=== PATIENT | male | born 1985 | race Caucasian/White ===

== ENCOUNTER 2019-12-11 22:05 | Emergency (ER) | payer OTHER, SELFPAY ==
--- NOTE | 2019-12-11 22:13 | XR_ITS ---
WS: [id number] Right hand, 3 views, 12/11/2019 Clinical Data: injury Comparison: None. Findings: No fractures or dislocations are seen. There is soft tissue swelling in the subcutaneous tissue overlying the right fifth PIP joint.No radiopaque foreign bodies are seen. XR/XR hand RT min 3V* [id number] Impression: Soft tissue swelling overlying the right fifth PIP joint.
[2019-12-11 22:41] VITALS: BP 130/74; PULSE 86; RESP 14; TEMP 36.4; O2SAT 96; BMI 27.3
--- NOTE | 2019-12-12 01:36 | W.ED.WOUNDLC ---
HPI - Wound/Laceration General: Chief Complaint: Wound/Laceration Stated Complaint: right pinky injury Time Seen by Provider: 12/12/19 01:30 Source: patient Mode of arrival: ambulatory Limitations: no limitations History of Present Illness: HPI narrative: Patient is a 34-year-old male who presents to ED today with complaints of a right fifth digit laceration that he sustained after catching it in a bushhog. Patient's last tetanus is unknown. Onset (ago): hour(s) Extremity Location: Left: hand (5th digit) Place: home Patient tetanus UTD: No Context: accidental Associated symptoms: Reports no associated symptoms Review of Systems Musc: Reports: extremity pain (R 5th finger) Skin/Breast: Reports: other (laceration to R 5th finger) Neuro: Denies: numbness in extremities or sensory changes Physical Exam Const: COMMON NORMALS: no acute distress, patient oriented x3 and alert OTHER: appears Extremity: OTHER: 3.5cm laceration to dorsal R 5th finger overlying PIP joint; extensor tendon visualized but pt appears to have full ROM; sensory intact; cap refill intact Neuro: COMMON NORMALS: patient oriented x3, moves all extremities, no focal motor deficits and no sensory deficits noted SENSORIUM/ORIENTATION: Yes alert Skin: OTHER: see extremity assessment Procedures Laceration Laceration 1: Site: hand (R 5th finger) Side (If applicable): right Size (cm): 3.5 Description: linear Depth: simple, single layer Local Anesthetic: lidocaine 2% (digital block) Amount of anesthesia used (mL): 2.0 Pre-repair: wound explored and irrigated extensively Skin layer closed with: nylon Size (cm): 4-0 Number of sutures: 8 Technique: simple, interrupted Course Vital Signs: Vital signs: Vital Signs Temperature 97.6 F 12/11/19 22:41 Pulse Rate 78 12/12/19 01:54 Respiratory Rate 14 12/11/19 22:41 Blood Pressure 130/74 12/11/19 22:41 Pulse Oximetry 96 12/11/19 22:41 MDM - Wound/Laceration MDM Narrative: Medical decision making narrative: Patient does have a fairly deep laceration and portion of extensor tendon is visualized. Although there is not obvious deficits I spoke to patient regarding possible follow-up with orthopedics just for further evaluation to make sure there is no tendon involvement. Patient [facility]. Patient will be placed in a splint. Wound care discussed. Imaging Data^: R hand XR: My impression: NAD; soft tissue injury over 5th digit-no bony involvement; small fb noted elsewhere in hand that does not correspond with today's injury Discharge Plan Discharge Patient Disposition: Home, Self-Care Clinical Impression: Laceration of right little finger Qualifiers: Encounter type: initial encounter Damage to nail status: without damage Foreign body presence: without foreign body Qualified Code(s): S61.216A - Laceration without foreign body of right little finger without damage to nail, initial encounter Condition: Stable Prescriptions: New Keflex 500 mg capsule 500 mg PO Q6H 7 Days Qty: 28 RF: 0 Discharge Orders: Discharge Order (Routine); Ordered 12/12/19 Ordered By: Karyn Engel Referrals: Pattie Sunshine FNP [Family Provider] - Patient Instructions: Finger Laceration (ED) Activity Restrictions/Additional Instructions: As discussed please keep finger clean with warm soap and water several times daily. Sutures need to come out in 7 to 10 days. Fill your antibiotics tomorrow. Monitor for signs of infection such as redness, swelling, drainage. As discussed [facility] see if [facility] need to refer you to orthopedic/hand surgery. Discharge Date/Time: 12/12/19 02:51 Coding Level of Care Code ED Electric Motor Tester for Kim Jackson
[2019-12-12 01:54] VITALS: PULSE 78
[2019-12-12] MEDS: tetanus-diphtheria tox (adult) 0.5 mL SDV IM (02:00)
[2019-12-12 02:48] VITALS: BP 111/63; PULSE 82; RESP 18; O2SAT 96
== END 2019-12-12 02:51 | disposition home or self-care (01) ==
PROVIDERS: Emergency Provider Physician Assistant; Family Provider Nurse Practitioner
DX: S61.216A Laceration without foreign body of right little finger without damage to nail, initial encounter (principal); W31.9XXA Contact with unspecified machinery, initial encounter; Z23 Encounter for immunization
CPT/HCPCS: 12002; 12345; 73130; 90471; 90714; 99282; 99283

== ENCOUNTER 2020-02-17 19:05 | Emergency (ER) | payer OTHER, SELFPAY ==
[2020-02-17 19:17] VITALS: BP 162/94; PULSE 78; RESP 18; TEMP 36.5; O2SAT 97; BMI 27.3
== END 2020-02-17 20:27 ==
PROVIDERS: Emergency Provider Emergency Medicine; PCP Nurse Practitioner
DX: Z53.21 Procedure and treatment not carried out due to patient leaving prior to being seen by health care provider (principal)
CPT/HCPCS: 99281

== ENCOUNTER 2020-03-01 07:20 | Outpatient (CLI) | payer OTHER, SELFPAY ==
--- NOTE | 2020-03-01 07:24 | MR_ITS ---
WS: [id number] MRI LUMBAR SPINE NONCONTRAST HISTORY: Low back pain. Pain for one month. COMPARISON: 03/18/2019 TECHNIQUE: Sagittal and axial multisequence imaging is submitted. Mild straightening of the normal lumbar lordosis. Chronic endplate changes at L5 and S1. Otherwise no marrow edema or fracture. Mild disc space narrowing and desiccation at L5-S1. Schmorl's node at L1. Conus terminates normally at L1. L1-L2: Normal. L2-L3: Normal. L3-L4: Small amount of fluid in the facet joints and mild ligamentum flavum hypertrophy. No significa nt stenosis. L4-L5: Mild annular disc bulging with a very tiny central disc protrusion and annular fissure. Mild l igamentum flavum hypertrophy and facet arthritis. No significant stenosis. L5-S1: Mild annular disc bulging and osteophytic ridging. Central disc osteophyte complex without sig nificant stenosis. There is very minimal encroachment upon the S1 nerve roots bilaterally with no dis placement. Disc osteophyte complexes extend into the foramen with mild foraminal narrowing and mild e ncroachment upon the L5 nerve roots. Similar to the prior study. Previously described large LEFT para central disc protrusion is no longer present. There is a small amount of edema in the soft tissues along the posterior lower back. Ovoid 2.3 x 1.9 cm mixed signal intensity subcutaneous mass over the sacrum may be related to prior injury with resol ving hematoma or pilonidal cyst extension. MR/MR lumbar spine wo con* [id number] IMPRESSION: 1. Interval resolution of the large LEFT paracentral and lateral recess disc p rotrusion at L5-S1. 2. Mild residual disc osteophyte complexes at L5-S1 with facet arthritis. Mild foraminal narrowing. 3. Mild degenerative disc disease at L5-S1.
== END 2020-03-01 07:21 | disposition home or self-care (01) ==
LOC: RADSHAW 07:23
PROVIDERS: PCP Nurse Practitioner; Visit Provider Nurse Practitioner
DX: M51.27 Other intervertebral disc displacement, lumbosacral region (principal); M25.78 Osteophyte, vertebrae; M47.817 Spondylosis without myelopathy or radiculopathy, lumbosacral region; M51.37 Other intervertebral disc degeneration, lumbosacral region
CPT/HCPCS: 72148

== ENCOUNTER 2020-09-16 19:09 | Emergency (ER) | payer OTHER, SELFPAY ==
--- NOTE | 2020-09-16 19:10 | XRR_ITS ---
PROCEDURE INFORMATION: Exam: XR Chest Exam date and time: 09/16/2020 8:09 PM Age: 34 years old Clinical indication: Shortness of breath; Chest pain; Type not specified; Additional info: Cp, SOB, BP issues x 4 days TECHNIQUE: Imaging protocol: XR of the chest. Views: 1 view. COMPARISON: No relevant prior studies available. FINDINGS: Lungs: Unremarkable. No consolidation. Pleural spaces: Unremarkable. No pleural effusion. No pneumothorax. Heart/Mediastinum: Unremarkable. No cardiomegaly. Bones/joints: Unremarkable. XR/XR chest 1V portable [id number] IMPRESSION: No acute findings.
[2020-09-16 19:19] VITALS: BP 144/86; PULSE 85; RESP 18; TEMP 36.9; O2SAT 99; BMI 27.3
[2020-09-16 20:16] LABS: Basophils % 0.2 %; Eosinophils # 0.1 10^3/uL (0.0-0.8); Eosinophils % 0.7 %; Hematocrit 41.1 % (42.0-52.0); Hemoglobin 14.4 g/dL (11.7-16.6); Lymphocytes # 2.5 10^3/uL (0.8-4.8); Lymphocytes % 22.1 %; Mean Corpuscular Hemoglobin 32.4 pg (28.0-34.0); Mean Corpuscular Volume 92.4 fL (80-94); Mean Platelet Volume 10.8 fL (7.4-10.4); Monocytes # 0.8 10^3/uL (0.2-0.9); Monocytes % 7.5 %; Neutrophils # 7.72 10^3/uL (1.8-7.7); Neutrophils % 69.2 %; Nucleated Red Blood Cells % 0 %; Platelet Count 164 10^3/cmm (130-400); Red Blood Count 4.45 10^6/uL (4.1-5.3); Red Cell Distribution Width 11.8 % (12.1-15.1); White Blood Count 11.1 10^3/uL (4.0-10.0)
--- NOTE | 2020-09-16 20:17 | W.ED.CHESTPA ---
HPI - Chest Pain General: Chief Complaint: Chest Pain Stated Complaint: CP/SOB/BP ISSUES Time Seen by Provider: 09/16/20 20:04 Source: patient Mode of arrival: ambulatory Limitations: no limitations History of Present Illness: HPI narrative: 34-year-old male states over the last 3 days he has had some slight chest pain along with some dyspnea. He states pain is been sharp in nature and constant. States pain is currently a 3 out of 10. He states he is also had a migraine today. He has a long history of migraines. He states his pain is a 7 out of 10 currently. He states he has photophobia and phonophobia. This is like his previous migraines. He denies any vomiting or diarrhea. Denies any abdominal pain. Denies any neck pain. Associated symptoms: Deny abdominal pain, dyspnea, fever(s), nausea or vomiting Review of Systems Const: Denies: fever(s), chills, body aches or change in appetite Eyes: Denies: blurry vision or eye discomfort ENMT: Denies: throat pain or dental pain Card: Reports: chest pain Resp: Denies: dyspnea GI: Denies: abdominal pain, nausea, vomiting or diarrhea : Denies: dysuria Musc: Denies: neck pain or back pain Skin/Breast: Denies: rash Neuro: Reports: headache(s) Psych: Denies: depression Tahir/Lymph: Denies: easy bruising All/Imm: Denies: urticaria Physical Exam Const: COMMON NORMALS: no acute distress, patient oriented x3 and healthy appearing HENMT: COMMON NORMALS: normocephalic and atraumatic HEAD & SCALP: normocephalic and atraumatic Eye: COMMON NORMALS: Equal, round and reactive pupils present and EOMs intact bilaterally PUPIL: Yes Equal, round and reactive pupils present Neck/C-Spine: COMMON NORMALS: full ROM and supple Chest: COMMONS NORMALS: normal inspection of the chest and normal palpation of entire chest wall Resp: COMMON NORMALS: normal respiratory effort, No retractions, No use of accessory muscles and clear to auscultation bilaterally AUSCULTATION: clear to auscultation bilaterally Cardio: COMMON NORMALS: regular rate, regular rhythm and No murmurs present (Cardio) RATE: regular rate RHYTHM: regular rhythm GI: COMMON NORMALS: Normal to inspection, nondistended, normoactive bowel sounds present, Soft to palpation, non-tender and no masses PALPATION: Yes Soft to palpation Extremity: COMMON NORMALS: normal to inspection and full ROM Neuro: COMMON NORMALS: patient oriented x3, moves all extremities and no focal motor deficits Psych: COMMON NORMALS: mental status grossly normal, Normal thought process present and cooperative THOUGHT PROCESS: Normal thought process present Skin: COMMON NORMALS: no rashes or lesions noted and no wounds GENERAL SKIN EXAM: no rashes or lesions noted Course Vital Signs: Vital signs: Vital Signs Temperature 98.4 F 09/16/20 19:19 Pulse Rate 84 09/16/20 21:25 Respiratory Rate 16 09/16/20 21:25 Blood Pressure 126/80 09/16/20 21:25 Pulse Oximetry 98 09/16/20 21:25 MDM - Chest Pain MDM Narrative: Medical decision making narrative: Patient presents here with headache is likely a migraine headache. His headache is resolved here and has no signs of subarachnoid hemorrhage or meningitis. He also complained of some chest pain is mild in nature and his troponin EKG and x-ray are all normal. He has no signs of pulmonary embolism or acute coronary syndrome. He is to follow-up his PCP and return if worsening. Lab Data: Labs: Lab Results 09/16/20 09/16/20 09/16/20 Range/Units 20:09 20:09 20:09 WBC 11.1 H (4.0-10.0) 10^3/ uL RBC 4.45 (4.1-5.3) 10^6/u L Hgb 14.4 (11.7-16.6) g/dL Hct 41.1 L (42.0-52.0) % MCV 92.4 (80-94) fL MCH 32.4 (28.0-34.0) pg MCHC 35.0 (30.0-36.0) g/dL RDW 11.8 L (12.1-15.1) % Plt Count 164 (130-400) 10^3/c mm MPV 10.8 H (7.4-10.4) fL Neut % (Auto) 69.2 % Lymph % (Auto) 22.1 % Mingo % (Auto) 7.5 % Eos % (Auto) 0.7 % Baso % (Auto) 0.2 % Neut # (Auto) 7.72 H (1.8-7.7) 10^3/u L Lymph # (Auto) 2.5 (0.8-4.8) 10^3/u L Mingo # (Auto) 0.8 (0.2-0.9) 10^3/u L Eos # (Auto) 0.1 (0.0-0.8) 10^3/u L Baso # (Auto) 0.0 (0.0-0.1) 10^3/u L Nucleated RBC % (a uto) 0 % Nucleated RBCs # 0.0 /100WBC Sodium 137 (136-145) mmol/L Potassium 3.4 L (3.5-5.1) mmol/L Chloride 100 (98-107) mmol/L Carbon Dioxide 26 (22-29) mmol/L Anion Gap 14.4 (5-19) BUN 18 (6-20) mg/dL Creatinine 0.8 (0.7-1.2) mg/dL GFR Calculation 110.0 (90-130) mL/min Glucose 93 (65-115) mg/dL Calculated Osmolal ity 286 (285-295) mOsm/k g Calcium 8.8 (8.5-10.5) mg/dL Total Bilirubin 0.5 (0.15-1.2) mg/dL AST 26 (0-40) U/L ALT 39 (0-41) U/L Alkaline Phosphata se 73 (40-130) IU/L Troponin T Baselin e 6 (0-15) ng/L Total Protein 6.9 (6.6-8.7) g/dL Albumin 5.0 (3.5-5.2) g/dL Globulin 1.9 (1.3-4.6) g/dL Imaging Data^: CXR: Attestation: I personally reviewed and interpreted this imaging study as follows: My impression: no acute abnormality EKG Data^: EKG 1: Attestation: I personally reviewed and interpreted this EKG as follows: EKG interpretation date: 09/16/20 EKG interpretation time: 17:55 Interpretation: nsr hr [address] or t wave abnormalities Discharge Plan Discharge Patient Disposition: Home Clinical Impression: Chest pain Qualifiers: Chest pain type: unspecified Qualified Code(s): R07.9 - Chest pain, unspecified Headache Qualifiers: Headache type: unspecified Headache chronicity pattern: acute headache Intractability: not intractable Qualified Code(s): R51.9 - Headache, unspecified Condition: Stable Discharge Orders: Discharge ED (Routine); Ordered 09/16/20 Ordered By: Melanie Wood Referrals: Pattie Sunshine HYDROELECTRIC STATION OPERATOR CHIEF [Primary Care Provider] - 1-3 days Discharge Diet: Advance as tolerated Discharge Activity: Resume usual activity Patient Instructions: Chest Pain (ED), Migraine Headache (ED) Coding Level of Care Code ED Sales Research Analyst for Chg Fwd Exam Comprehensive
[2020-09-16] MEDS: diphenhydrAMINE 50 mg/mL SDV 1mL IVP (20:23)
[2020-09-16] MEDS: metoclopramide 5 mg/mL SDV 2 mL 10 MG IVP (20:25)
[2020-09-16] MEDS: dexamethasone 10 mg/mL INJ IVP (20:28)
[2020-09-16 20:35] VITALS: BP 127/84; RESP 18; O2SAT 100
[2020-09-16 20:36] LABS: Alanine Aminotransferase 39 U/L (0-41); Alkaline Phosphatase 73 IU/L (40-130); Anion Gap 14.4 (5-19); Aspartate Amino Transferase 26 U/L (0-40); Blood Urea Nitrogen 18 mg/dL (6-20); Calcium 8.8 mg/dL (8.5-10.5); Carbon Dioxide 26 mmol/L (22-29); Chloride 100 mmol/L (98-107); Globulin 1.9 g/dL (1.3-4.6); Glucose 93 mg/dL (65-115); Osmolality Calculated 286 mOsm/kg (285-295); Potassium 3.4 mmol/L (3.5-5.1); Sodium 137 mmol/L (136-145); Total Bilirubin 0.5 mg/dL (0.15-1.2); Total Protein 6.9 g/dL (6.6-8.7)
[2020-09-16 20:38] LABS: Troponin(5th) Baseline 6 ng/L (0-15)
[2020-09-16 21:18] VITALS: BP 126/80; O2SAT 98
[2020-09-16 21:25] VITALS: BP 126/80; PULSE 84; RESP 16; O2SAT 98
== END 2020-09-16 21:26 | disposition home or self-care (01) ==
PROVIDERS: Emergency Provider Emergency Medicine; PCP Nurse Practitioner
DX: R07.9 Chest pain, unspecified (principal); R51.9 Headache, unspecified
CPT/HCPCS: 71045; 80053; 84484; 85025; 96374; 96375; 99284; J1100; J1200; J2765

== ENCOUNTER → 2020-11-20 08:16 | Outpatient (BNVA) | payer OTHER, SELFPAY | PROVIDERS: PCP Nurse Practitioner; Visit Provider Chiropractor | DX: Z01.812 Encounter for preprocedural laboratory examination (principal); Z20.822 Contact with and (suspected) exposure to COVID-19 | CPT/HCPCS: 87635 ==

== ENCOUNTER 2020-11-26 08:48 | Outpatient (CLI) | payer OTHER, SELFPAY ==
--- NOTE | 2020-11-26 14:00 | PFTS_ITS ---
Date of Study:11/26/20 Date of Dictation: MECHANICS: Forced vital capacity (FVC) is normal. Forced expiratory volume in one second (FEV1) is reduced. FEV1/FVC is reduced. FLOW VOLUME LOOP: Reduced flow with scooping. LUNG VOLUMES: Not measured DIFFUSING CAPACITY FOR CARBON MONOXIDE: Not measured. INTERPRETATION: The prebronchodilator spirometry is consistent with moderate airflow obstruction. The postbronchodilator spirometry is also consistent with moderate airflow obstruction. There is a significant postbronchodilator response. The spirometry is suggestive of reversible airway obstruction. MTDD
== END 2020-11-26 08:49 | disposition home or self-care (01) ==
LOC: RT 08:49
PROVIDERS: PCP Nurse Practitioner; Visit Provider Chiropractor
DX: J45.909 Unspecified asthma, uncomplicated (principal)
CPT/HCPCS: 94060; J7611

== ENCOUNTER → 2021-06-12 13:44 | Outpatient (BNVA) | payer OTHER, SELFPAY | PROVIDERS: PCP Nurse Practitioner; Referring Provider Nurse Practitioner; Visit Provider Podiatrist Foot & Ankle Surgery | DX: M25.372 Other instability, left ankle (principal); M76.72 Peroneal tendinitis, left leg; M19.172 Post-traumatic osteoarthritis, left ankle and foot | CPT/HCPCS: 73610; 73630 ==

== ENCOUNTER 2022-11-26 09:00 | Outpatient (CLI) | payer OTHER, SELFPAY ==
--- NOTE | 2022-11-26 09:10 | US_ITS ---
WS: [id number] ULTRASOUND ABDOMEN LIMITED CLINICAL INFORMATION: RUQ US FOR ELEVATED LIVER ENZYMES COMPARISON: None. FINDINGS: Liver Size: Enlarged Craniocaudal length: 19.4 cm. Echogenicity: Coarse Surface nodularity: None. Mass (size and location): None. Bile ducts Intrahepatic ducts: Normal. Common bile duct diameter: 0.5 cm. Gallbladder Normal. Gallstones: None. Gallbladder sludge: None. Gallbladder wall thickening: None. Pericholecystic fluid: None. Sonographic Radford sign: Absent. Pancreas Not visualized due to bowel gas Right kidney: Normal. Hydronephrosis: None. Size: 10.4 cm x 5.7 cm x 6.0 cm. Abdominal aorta and IVC Visualized portions are normal. Ascites: None. US/US abdomen limited [id number] IMPRESSION: 1. Hepatomegaly with diffuse fatty infiltration. 2. Normal gallbladder and common bile duct. No cholelithiasis. 3. No hydronephrosis in RIGHT kidney.
== END 2022-11-26 09:01 | disposition home or self-care (01) ==
LOC: RAD 09:01
PROVIDERS: PCP Nurse Practitioner; Visit Provider Nurse Practitioner
DX: R74.01 Elevation of levels of liver transaminase levels (principal); K76.0 Fatty (change of) liver, not elsewhere classified
CPT/HCPCS: 76705

== ENCOUNTER 2024-01-07 14:02 | Outpatient (CLI) | payer OTHER, SELFPAY ==
--- NOTE | 2024-01-07 14:34 | CT_ITS ---
WS: [id number] CT HEAD NONCONTRAST HISTORY: MIGRAINES TECHNIQUE: Contiguous axial imaging performed through the brain in 2.5 mm imaging. Bone and soft tiss ue windows. Sagittal and coronal reformats reviewed. All CT scans at [facility] use at least one of these dose optimization techniques: automated exposure control; mA and/or kV adjustment per pa tient size (includes targeted exams where dose is matched to clinical indication); or iterative recon struction. DLP: 1081.84 mGy.cm COMPARISON: None available. No acute intracranial hemorrhage, midline shift or mass effect. No atrophy or prior infarcts or herniation. Ventricles: Normal size with no hydrocephalus. No inferior displacement of cerebellar tonsils. Paranasal sinuses: Mild mucoperiosteal thickening in the ethmoid air cells. Mastoid air cells: Well pneumatized. Calvarium and scalp: Skull is intact with no soft tissue edema or swelling. CT/CT head wo con* [id number] IMPRESSION: Negative head CT.
== END 2024-01-07 14:03 | disposition home or self-care (01) ==
LOC: RAD 14:02
PROVIDERS: PCP Nurse Practitioner; Visit Provider Nurse Practitioner
DX: G43.009 Migraine without aura, not intractable, without status migrainosus (principal)
CPT/HCPCS: 70450

== ENCOUNTER 2024-05-23 13:21 | Emergency (ER) | payer OTHER, SELFPAY ==
[2024-05-23 13:25] VITALS: BP 138/71; PULSE 71; RESP 18; TEMP 36.7; O2SAT 97
--- NOTE | 2024-05-23 13:31 | ECG_ITS ---
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 Measurements Intervals [place] Rate: 70 P: 19 IL: 149 QRS: 41 QRSD: 89 T: 48 QT: 385 QTc: 416 Interpretive Statements SINUS RHYTHM No previous ECG available for comparison Electronically Signed On 05-23-2024 19:56:53 WELD TECHNICIAN by Moises Velásquez M.D. [email or web address]
--- NOTE | 2024-05-23 13:51 | W.ED.SOB ---
HPI - SOB/Dyspnea General: Chief Complaint: Shortness of Breath/Dyspnea Stated Complaint: sent from [place] sob,chest pains Time Seen by Provider: 05/23/24 13:51 History of Present Illness: HPI Narrative: 38-year-old man with a history of asthma who presents emergency room with shortness of breath, wheezing and pain with inspiration. He feels a little bit more short of breath than usual. No known fevers. Some burning chest pain with inspiration. No lower extremity swelling. No abdominal pain. No nausea or vomiting. Related Data Home Medications Medication Instructions Recorded Confirmed albuterol sulfate 90 mcg/actuation 2 puff inhalation Q6H PRN 06/12/21 05/23/24 aerosol inhaler Shortness Of Breath Or Wheezing hydrochlorothiazide 25 mg tablet 25 mg PO DAILY 06/12/21 05/23/24 metoprolol succinate 100 mg 200 mg PO DAILY 06/12/21 05/23/24 tablet,extended release 24 hr temazepam 15 mg capsule 15 mg PO DAILY 06/12/21 05/23/24 duloxetine 60 mg capsule,delayed 60 mg PO DAILY 05/23/24 05/23/24 release fenofibrate nanocrystallized 145 145 mg PO DAILY 05/23/24 05/23/24 mg tablet fluticasone 250 mcg-salmeterol 50 1 inh inhalation BID 05/23/24 05/23/24 mcg/dose blistr powdr for inhalation (Wixela Inhub) sumatriptan succinate 50 mg tablet 50 mg PO Q2H PRN Migraine Headache 05/23/24 05/23/24 Previous Rx's Medication Instructions Recorded albuterol sulfate 90 mcg/actuation 2 inh inhalation Q4H PRN shortness 05/23/24 aerosol inhaler of breath or wheezing #6.7 grams azithromycin 250 mg tablet See Rx Instructions PO .COMPLEX #6 05/23/24 (Zithromax Z-Gallito) tabs dexamethasone 6 mg tablet 6 mg PO DAILY 5 days #5 tabs 05/23/24 Allergies Allergy/AdvReac Type Severity Reaction Status Date / Time No Known Allergies Allergy Verified 05/23/24 13:29 Review of Systems Narrative: Constitutional symptoms: Negative except as documented in HPI. Skin symptoms: Negative except as documented in HPI. Eye symptoms: Negative except as documented in HPI. ENMT symptoms: Negative except as documented in HPI. Respiratory symptoms: Negative except as documented in HPI. Cardiovascular symptoms: Negative except as documented in HPI. Gastrointestinal symptoms: Negative except as documented in HPI. Genitourinary symptoms: Negative except as documented in HPI. Musculoskeletal symptoms: Negative except as documented in HPI. Neurologic symptoms: Negative except as documented in HPI. Psychiatric symptoms: Negative except as documented in HPI. Endocrine symptoms: Negative except as documented in HPI. Physical Exam Narrative: EXAM NARRATIVE: General: Alert, no acute distress. Skin: Warm, dry. Head: Normocephalic, atraumatic. Neck: Supple, trachea midline. Eye: Extraocular movements are intact. Ears, nose, mouth and throat: Oral mucosa moist. Cardiovascular: Regular rate and rhythm, Normal peripheral perfusion. Respiratory: some expiratory wheeze, mild increased wob, breath sounds are equal, Symmetrical chest wall expansion. Gastrointestinal: Soft, Nontender, Non distended, Normal bowel sounds. Musculoskeletal: Normal ROM, no deformity. Neurological: Alert and oriented to person, place, time, and situation, No focal neurological deficit observed. Psychiatric: Cooperative, appropriate mood & affect. Course Vital Signs: Vital signs: Vital Signs Temperature 98.0 F 05/23/24 13:25 Pulse Rate 71 05/23/24 13:25 Respiratory Rate 18 05/23/24 13:25 Blood Pressure 138/71 05/23/24 13:25 Pulse Oximetry 97 05/23/24 13:25 Oxygen Delivery Me thod Room Air 05/23/24 13:25 MDM - SOB/Dyspnea Medical Decision Making Differential diagnosis for patient with shortness of breath includes but is not limited to and based on the above HPI, review of systems and physical exam: Pneumonia. Bronchitis. Asthma or COPD with acute exacerbation. Acute coronary syndrome / [place]. Pulmonary embolism. Anxiety. Congestive heart failure. Viral infections including influenza and Covid-19. Atrial fibrillation. Anxiety. Pleural effusion. Pneumothorax. Chest x-ray: No acute process. No infiltrate. No pneumothorax. This was reviewed and interpreted by myself the emergency room physician. I also reviewed the radiology report. Assessment and plan: Asthma exacerbation Upper respiratory infection - Discharged home - Discussed plan with patient. Answered any questions. - Evaluation and treatment of this problem were appropriate in the emergency setting. All radiology interpretation(s) finalized by discharge Discharge Plan Discharge Patient Disposition: Home Clinical Impression: Asthma with exacerbation Condition: Stable Prescriptions: New azithromycin [Zithromax Z-Gallito] 250 mg tablet See Rx Instructions .ROUTE .COMPLEX Qty: 6 0RF Rx Instructions: For 250 mg dose pack: take 500 mg today (day 1), then 250 mg for 4 days (days 2-5) dexamethasone 6 mg tablet 6 mg PO DAILY 5 Days Qty: 5 0RF albuterol sulfate 90 mcg/actuation HFA aerosol inhaler 2 inh inhalation Q4H PRN (Reason: shortness of breath or wheezing) Qty: 6.7 0RF Rx Instructions: Please provide patient with a spacer No Action albuterol sulfate 90 mcg/actuation HFA aerosol inhaler 2 puff inhalation Q6H PRN (Reason: Shortness Of Breath Or Wheezing) hydrochlorothiazide 25 mg tablet 25 mg PO DAILY metoprolol succinate 100 mg tablet extended release 24 hr 200 mg PO DAILY temazepam 15 mg capsule 15 mg PO DAILY fluticasone propion-salmeterol [Wixela Inhub] 250-50 mcg/dose Blister With Device 1 inh INHALATION BID sumatriptan succinate 50 mg Tablet 50 mg PO Q2H PRN (Reason: Migraine Headache) Rx Instructions: do not exceed 4 doses per 24 hrs duloxetine 60 mg Capsule,Delayed Release(Dr/Ec) 60 mg PO DAILY fenofibrate nanocrystallized 145 mg Tablet 145 mg PO DAILY Discharge Orders: Discharge ED (Routine); Ordered 05/23/24 Ordered By: Juliette Cottrell Referrals: Pattie Sunshine, MOISTURE MACHINE TENDER [Primary Care Provider] - Discharge Diet: Usual diet Discharge Activity: Increase activity as tolerated Patient Instructions: Upper Respiratory Infection (ED), Opioid Safety, Pain Management Activity Restrictions/Additional Instructions: Thank you for choosing [facility] for your healthcare needs today. Please realize this is an emergency room and that we are providing you with a medical screening exam and this may not be complete and all inclusive of all the testing and or work up that you may need to determine your ailment or severity of your illness. You have been screened and evaluated and felt safe for discharge. Health conditions do change or evolve sometimes and as such it is important that you follow up with your Primary Doctor to be re checked, 3-5 days is a general good time frame for follow up. You are always welcome to return to the ED for re assessment if your symptoms are worsening or you have new concerns Coding Level of Care Code ED Rib Stiffener And Heel Dipper for Kim Jackson
--- NOTE | 2024-05-23 13:54 | XRR_ITS ---
PROCEDURE INFORMATION: Exam: XR Chest Exam date and time: 05/23/2024 1:56 PM Age: 38 years old Clinical indication: Shortness of breath TECHNIQUE: Imaging protocol: Radiologic exam of the chest. Views: 1 view. COMPARISON: CR XR chest 1V portable [id number] 09/16/2020 7:59 PM FINDINGS: Lungs: Mild left basilar linear atelectasis versus scarring. No consolidation. Pleural spaces: Unremarkable. No pleural effusion. No pneumothorax. Heart/Mediastinum: Unremarkable. No cardiomegaly. Bones/joints: Unremarkable. XR/XR chest 1V portable [id number] IMPRESSION: No acute findings.
[2024-05-23 14:47] VITALS: BP 165/65; PULSE 73; O2SAT 96
[2024-05-23 14:48] VITALS: BP 136/65; PULSE 73; O2SAT 96
== END 2024-05-23 14:50 | disposition home or self-care (01) ==
PROVIDERS: Emergency Provider Emergency Medicine; PCP Nurse Practitioner
DX: J45.901 Unspecified asthma with (acute) exacerbation (principal)
CPT/HCPCS: 71045; 93005; 99284

== ENCOUNTER 2024-09-09 10:34 | Outpatient (CLI) | payer OTHER, SELFPAY ==
--- NOTE | 2024-09-09 10:39 | MR_ITS ---
WS: [id number] MRI LUMBAR SPINE NONCONTRAST HISTORY: LOW BACK PAIN COMPARISON: 03/01/2020 TECHNIQUE: Sagittal and axial multisequence imaging is submitted. Normal lumbar alignment with no compression fractures or marrow edema. Mild disc space narrowing at L5-S1. Conus terminates normally at L1-2 disc level. L1-L2: Normal. L2-L3: Normal. L3-L4: Mild ligamentum flavum and facet arthritis.. Minimal encroachment upon the traversing L4 nerve roots. L4-L5: Mild annular disc bulging with a tiny central disc protrusion. Mild ligamentum flavum and moderate facet arthritis. Mild subarticular recess stenosis. L5-S1: Annular disc bulging with contact on the S1 nerve roots. Disc osteophyte disease extending into the foramen resulting in mild bilateral foraminal narrowing. No large disc protrusions. Paravertebral soft tissues are normal. MR/MR lumbar spine wo con* [id number] IMPRESSION: 1. No high-grade central or foraminal stenosis. 2. Minimal disc encroachment upon the traversing L4 nerve roots. 3. L4-5: Mild subarticular recess stenosis with a tiny central disc protrusion . 4. L5-S1: Mild disc bulge with contact on the S1 nerve roots. Minimal subartic ular recess stenosis and mild foraminal stenosis due to disc osteophyte disease . Minimal progression.
== END 2024-09-09 10:35 | disposition home or self-care (01) ==
PROVIDERS: PCP Nurse Practitioner; Visit Provider Nurse Practitioner
DX: M48.061 Spinal stenosis, lumbar region without neurogenic claudication (principal); M51.379 Other intervertebral disc degeneration, lumbosacral region without mention of lumbar back pain or lower extremity pain; M48.07 Spinal stenosis, lumbosacral region; M25.78 Osteophyte, vertebrae; M24.28 Disorder of ligament, vertebrae; M47.896 Other spondylosis, lumbar region; M51.369 Other intervertebral disc degeneration, lumbar region without mention of lumbar back pain or lower extremity pain
CPT/HCPCS: 72148

== ENCOUNTER 2024-12-25 08:11 | Emergency (ER) | payer OTHER, SELFPAY ==
--- OUTSIDE RECORDS SUMMARY | 2024-08-23 06:00 | XMS_ITS | Encounter Summary ---
Author Name [facility] [place] [facility] [place] [facility] [place] [facility] [place] Address [address] [place] [address] Care Team Providers Care Childcare Administrator Name Role Phone JORDY CHADWICK Primary Care Provider Unavail able Insurance Providers: All historical and current Section Date Range: From patient's date of to the date document was created. This section includes the names of all active insurance providers for the patient. Insurance Provider Type of Coverage Plan Name Start of Policy Coverage End of Policy Coverage Group Number Member ID Insurance Provider's Telephone Number Policy Portillo's Name Patient's Relationship to Policy Portillo [employer] VISION VISION AETNA VISIO N PREFE R Jun 01, 2020 [id number] MINA QIU PATIENT Selected Encounter This section includes the information on record at [place] for the Encounter. Date/Time Encounter Type Encounter Description Reason Provider Source Aug 23, 2024 11:00 AM OFFICE O/P EST MOD 30 MIN PRIMARY CARE/MEDICINE ICD-10-CM F10.180 Alcohol abuse with alcohol-induce d anxiety disorder WILMER CHADWICK [facility] Encounter Template Text not used by [facility] Assessments - Encounter Diagnoses This section includes the primary and secondary diagnoses documented for the Encounter. Date/Time Primary/Secondary Diagnosis Diagnosis Name Provider Source Sep 04, 2024 01:01 PM PRIMARY Alcohol abuse with alcohol-induced anxiety disorder BENNY CHADWICK [facility] Sep 04, 2024 01:01 PM SECONDARY Epistaxis BENNY CHADWICK [facility] Sep 04, 2024 01:01 PM SECONDARY Low back pain, unspecified BENNY CHADWICK [facility] Sep 04, 2024 01:01 PM SECONDARY Obstructive sleep apnea (adult) (pediatric) BENNY CHADWICK [facility] Plan of Treatment: Future Appointments (+ 6 months) and Future Tests (+/- 45 days) The Plan of Treatment section includes future care activities for the patient from all [place] [facility]. This section includes future appointments and future orders which are active, pending or scheduled. Future Appointments This section includes appointments that were scheduled to occur 6 months from the date of the Encounter, up to a maximum of 20 appointments. The data comes from all [place] treatment facilities. Appointment Date/Time Appointment Type Appointme nt Facility Name Sep 09, 2024 11:00 AM AMBULATORY - MEDICINE [facility] October 06, 2024 02:30 PM AMBULATORY - MEDICINE [facility] Dec 15, 2024 02:00 PM AMBULATORY - MEDICINE [facility] Dec 19, 2024 03:15 PM AMBULATORY - MEDICINE [facility] Jan 02, 2025 10:00 AM AMBULATORY - MEDICINE [facility] Vital Signs: All taken on the encounter date This section contains inpatient and outpatient Vital Signs collected on the date of the Encounter. Date/Time Temperature Pulse Blood Pressure Respiratory Rate SP02 Pain Height Weight Body Mass Index Source Aug 23, 2024 11:24 AM 66 113/69 16 97 69.0 252.6 37 [facility] Social History: Smoking Status (Most current) and Tobacco Use (All prior to encounter date) This section includes the most current, and the historical, smoking and tobacco- related health factors from the [place] facility where the Encounter took place. Current Smoking Status This section includes the most current smoking, or tobacco-related health factor, from the [place] facility where the Encounter took place. Date/Time Current Smoking Status Comment Facil ity October 29, 2023 10:30 AM VA-TOBACCO USER EVERY DAY [facility] Tobacco Use History This section includes a history of the smoking, or tobacco-related health factors, that were collected on or before the date of the Encounter. The data comes from the [place] facility where the Encounter took place. 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 [facility] October 29, 2023 10:30 AM VA-TOBACCO USE MED NO [facility] October 29, 2023 10:30 AM VA-TOBACCO USER EVERY DAY [facility] Oct 30, 2022 10:30 AM VA-TOBACCO NEVER USED [facility] Feb 01, 2021 08:30 AM VA-TOBACCO NEVER USED [facility] Mar 29, 2019 11:14 AM VA-TOBACCO NEVER USED [facility] Apr 06, 2018 08:06 AM VA-TOBACCO NEVER USED [facility] Nov 01, 2015 02:02 PM LIFETIME NON-USER OF TOBACCO [facility] Radiology Reports: +/- 30 days of the encounter Radiology Reports For cases when an order for radiology services may have been completed prior to the date of the Encounter, the report list includes the Radiology Reports that were completed up to 30 days before dateof the Encounter. For cases when an order for radiology services may have been completed after the date of the Encounter, the report list also includes the Radiology Reports that were completed up to30 days after date of the Encounter. The data comes from all [place] treatment facilities. Date/Time Radiology Report Provider Source Sep 09, 2024 10:52 AM MRI SPINE LUMBAR W /O CONT: CNIDY QIU [id number] -1985 M Exm Date: SEP 09, 2024@10:52 Req Phys: JORDY CHADWICK Loc: OUTSIDE PB-MRI (Req'g Loc) Img Loc: OUTSIDE PB-MRI Service: Unknown (Case [id number] COMPLETE) MRI SPINE LUMBAR W/O CONT (MRI Detailed) CPT:83638 Reason for Study: Exam imported from outside Clinical History: Original Data for Imported Study Patient Name: CINDY QIU Date: 1985 Sex: M Study Date: 09/09/24 Study Time: 10:52:06 Study Description: MR lumbar spine wo con* [id number] Referring Physician: UNKNOWN, UNKNOWN Series 1: 1 IN file, description: FUJI Presentation State - ANNOTATIONS Series 2: 1 IN file, description: FUJI Presentation State - SNAPSHOT Series 3: 15 MR files, description: 3 PL LOC (UPPER) Series 4: 7 MR files, description: SAG T2 SURVEY UPPER Series 5: 15 MR files, description: 3 PL LOC (LOWER) Series 6: 7 MR files, description: SAG T2 SURVEY LOWER Series 7: 15 MR files, description: SAG T2 Series 8: 15 MR files, description: SAG T1 Series 9: 15 MR files, description: SAG STIR Series 10: 39 MR files, description: AX T2 Series 11: 39 MR files, description: AX PD Report Status: Electronically Filed Date Reported: SEP 27, 2024 Report: No report text Impression: No impression text VERIFIED BY: / *ELECTRONICALLY FILED* [facility] Aug 23, 2024 11:58 AM SPINE LUMBOSACRAL 2 OR 3 VIEWS: CINDY QIU [id number] -1985 M Exm Date: AUG 23, 2024@11:58 Req Phys: JORDY CHADWICK Loc: PB-SANTOS PACT FOXTROT AEROSOL 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 Mild anterior wedging T12 and L1 L1 vertebral bodies appearing old and similar to previous study dated 10/24/2021. No dislocation. No bony destruction. Narrowing L1-2, L2-3 and L5-S1 disc spaces. There are degenerative changes. Mild retrolisthesis L1 on L2, L2 on L3, L3 on L4, and L4 on L5. There are degenerative changes. Scoliosis. Impression: 1. Isgy-ok-wgrzhsxo degenerative arthritis 2. Narrowing L1-2, L2-3 and L5 disc spaces 3. Mild anterior wedging T12 and L1 L1 vertebral body appearing old and similar to prior study dated 10/24/2021 4. Mild retrolisthesis L1 on L2, L2 on L3, L3 on L4 and L4 on L5 5. Mild scoliosis Primary Interpreting Staff: KUSHAL VALDES, RADIOLOGIST (Gear Coding Machine Operator, no e-sig) /KUSHAL Gottlieb [facility] Encounter Notes: All associated encounter notes This section contains the clinical notes associated to the Encounter. Date/Time Encounter Note(s) Provider Source Sep 07, 2024 10:16 AM ADDENDUM: LOCAL TITLE: Addendum STANDARD TITLE: ADDENDUM DATE OF NOTE: SEP 07, 2024@10:16:09 ENTRY DATE: SEP 07, 2024@10:16:10 AUTHOR: АНДРЕЙ KAUR COSIGNER: URGENCY: STATUS: COMPLETED Contacted and confirmed that he would like to have MRI of lumbar at [facility] and that he would prefer to got to see the neurosurgeon at this time. /huseyin/ Андрей Kaur RN [facility], [facility] Signed: 09/07/2024 10:17 Receipt Acknowledged By: 09/07/2024 18:14 /huseyin/ Joryd Chadwick, [facility], DAVID --- Original Document --- 09/05/24 NURSING NOTE PB: Contacted Clifton and reviewed test result letter with him and his . They stated that would like further evaluation for low back pain at [place] [facility]. Clifton stated that he also would list to see neurosurgeon at [facility]. Clifton stated that he has seen him in the past for his low back. /huseyin/ Андрей Kaur RN [facility], [facility] Signed: 09/05/2024 15:20 Receipt Acknowledged By: 09/05/2024 18:21 /huseyin/ [facility] 09/05/2024 ADDENDUM STATUS: COMPLETED We do not typically do both because either one can evaluate for injections or surgerical options so we will start with one or the other. They will not treat simultaneously. I will refer wherever you want to start but either one is going to also want a lumbar MRI so I will place that order. Please let me know which you want to start with. Less invasive would be with pain management for injections. Surgical options are with neurosurgery. /huseyin/ DEISY Pope [place] Signed: 09/05/2024 18:23 Receipt Acknowledged By: 09/07/2024 10:15 /huseyin/ Андрей Kaur RN [place] [facility] АНДРЕЙ KAUR [facility] Sep 05, 2024 06:21 PM ADDENDUM: LOCAL TITLE: Addendum STANDARD TITLE: ADDENDUM DATE OF NOTE: SEP 05, 2024@18:21:19 ENTRY DATE: SEP 05, 2024@18:21:21 AUTHOR: JORDY CHADWICK COSIGNER: URGENCY: STATUS: COMPLETED We do not typically do both because either one can evaluate for injections or surgerical options so we will start with one or the other. They will not treat simultaneously. I will refer wherever you want to start but either one is going to also want a lumbar MRI so I will place that order. Please let me know which you want to start with. Less invasive would be with pain management for injections. Surgical options are with neurosurgery. /huseyin/ DEISY Pope [place] Signed: 09/05/2024 18:23 Receipt Acknowledged By: 09/07/2024 10:15 /chelsie Kaur RN [facility], [facility] --- Original Document --- 09/05/24 NURSING NOTE PB: Contacted Clifton and reviewed test result letter with him and his . They stated that would like further evaluation for low back pain at [facility]. stated that he also would list to see neurosurgeon at [facility]. stated that he has seen him in the past for his low back. /es/ Андрей Kaur RN [facility], [facility] Signed: 09/05/2024 15:20 Receipt Acknowledged By: 09/05/2024 18:21 /huseyin/ Jordy Chadwick [facility] 09/07/2024 ADDENDUM STATUS: UNSIGNED You may not VIEW this UNSIGNED Addendum. JODRY CHADWICK [facility] Sep 05, 2024 02:58 PM NURSING PROGRESS NOTE: LOCAL TITLE: NURSING NOTE PB STANDARD TITLE: NURSING PROGRESS NOTE DATE OF NOTE: SEP 05, 2024@14:58 ENTRY DATE: SEP 05, 2024@14:58:18 AUTHOR: АНДРЕЙ KAUR COSIGNER: URGENCY: STATUS: COMPLETED NURSING NOTE PB Has ADDENDA Contacted Clifton and reviewed test result letter with him and his . They stated that would like further evaluation for low back pain at [facility]. Clifton stated that he also would list to see neurosurgeon at [facility]. Clifton stated that he has seen him in the past for his low back. /huseyin/ Андрей Kaur RN [facility], [facility] Signed: 09/05/2024 15:20 Receipt Acknowledged By: 09/05/2024 18:21 /huseyin/ Jordy Chadwick ANALYTICAL SCIENTISTJohn[facility] 09/05/2024 ADDENDUM STATUS: COMPLETED We do not typically do both because either one can evaluate for injections or surgerical options so we will start with one or the other. They will not treat simultaneously. I will refer wherever you want to start but either one is going to also want a lumbar MRI so I will place that order. Please let me know which you want to start with. Less invasive would be with pain management for injections. Surgical options are with neurosurgery. /huseyin/ DE[place]Y [place] Signed: 09/05/2024 18:23 Receipt Acknowledged By: 09/07/2024 10:15 /huseyin/ Андрей Kaur RN [facility], [facility] 09/07/2024 ADDENDUM STATUS: COMPLETED Contacted and confirmed that he would like to have MRI of lumbar at [facility] and that he would prefer to got to see the neurosurgeon at this time. /huseyin/ Андрей Kaur RN [facility], [facility] Signed: 09/07/2024 10:17 Receipt Acknowledged By: * AWAITING SIGNATURE * JORDY CHADWICK JEANNIE RENEE [facility] Aug 23, 2024 11:39 AM PRIMARY CARE PROGRESS NOTE: LOCAL TITLE: PRIMARY CARE CLINIC PROGRESS NOTE PB STANDARD TITLE: PRIMARY CARE PROGRESS NOTE DATE OF NOTE: AUG 23, 2024@11:39 ENTRY DATE: AUG 23, 2024@11:39:30 AUTHOR: JORDY CHADWICK EXP COSIGNER: URGENCY: STATUS: COMPLETED PROVIDER ASSESSMENT DATE & TIME:Jul@11:39 CHIEF COMPLAINT: Increase in back pain, nosebleed, thinks butterfly rash on face. HISTORY OF PRESENT ILLNESS: Clifton presents today with reports that he quit drinking alcohol two months ago because it was disrupting their family lifestyle and causing personal problems. states things are much better and his life is improved. He does report though that he notices more back pain now that he is not drinking. He states that he often hears a clicking sound in his back. He states he is having nosebleeds with his cpap and is provided the number for new hoses and to speak with the cpap clinic. He is also encouraged to use humidification in their home. His reports she thinks he has a butterfly rash to his face. It is not noted today. He is due for labs in September and he would like to be checked then for anything that could be causing this and does not want labs today. He is given positive feedback and support on not drinking. 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 RINSE MOUTHPIECE FREQUENTLY TO PREVENT CLOGGING. Indication: FOR ASTHMA 2) FENOFIBRATE 145MG TAB TAKE ONE TABLET BY MOUTH ONCE A DAY - ACTIVE TAKE WITH FOOD Indication: FOR HIGH TRIGLYCERIDES 3) FLUTICAS 250/SALMETEROL 50 INHL DISK 60 INHALE 1 INHALATION ACTIVE BY ORAL INHALATION TWICE A DAY (OPEN DISKUS; CLICK ONLY ONCE; MAY INHALE TWICE TO COMPLETE DOSE; CLOSE WHEN FINISHED) RINSE MOUTH AND SPIT AFTER EACH USE. Indication: FOR COPD 4) HYDROCHLOROTHIAZIDE 25MG TAB TAKE ONE TABLET BY MOUTH ONCE A ACTIVE DAY Indication: FOR HIGH BLOOD PRESSURE 5) METOPROLOL SUCCINATE 200MG SA TAB TAKE ONE TABLET BY MOUTH ACTIVE ONCE A DAY SWALLOW WHOLE, DO NOT CRUSH OR CHEW (TABLETS MAY BE CUT IN HALF). Indication: FOR HIGH BLOOD PRESSURE 6) SUMATRIPTAN SUCCINATE 50MG TAB TAKE ONE TABLET BY MOUTH ACTIVE ONE-TIME FOR MIGRAINE. TAKE AT ONSET OF HEADACHE. MAY REPEAT AFTER 2 HOURS. NOT TO EXCEED 2 TABLETS IN 24 HOURS. 7) TEMAZEPAM 15MG CAP TAKE ONE CAPSULE BY MOUTH AT BEDTIME ACTIVE NEEDED Indication: FOR INSOMNIA REVIEW OF SYSTEMS: HEENT: No Headache. No blurry vision, vision loss, eye pain, red eyes, or foreign body. No runnynose, congestion. No hearing loss,ringing in the ears, or vertigo. No sore throat or dental pain. Nose bleed. RESPIRATORY: No cough, SOA, wheezing, or sputum production. CARDIOVASCULAR: No chest pain, palpitations, tachycardia, PND, or orthopnea. GI: No abdominal pain, nausea, vomiting, diarrhea, constipation, melena, or hematochezia. : No dysuria, hematuria, urinary frequency, weak stream, or post-void dribbling. MUSCULOSKELETAL:low back pain. SKIN: No rash, lesions, or infection PSYCH: No Depression or Anxiety. Not suicidal. PHYSICAL ASSESSMENT: VITAL SIGNS Pulse: 66 (08/23/2024 11:24) Blood Pressure: 113/69 (08/23/2024 11:24) Respiratory Rate: 16 (08/23/2024 11:24) Temperature: 97.9 F [36.6 C] (10/29/2023 10:35) Weight: 252.6 lb [114.58 kg] (08/23/2024 11:24) Height: 69.0 in [175.3 cm] (08/23/2024 11:24) Pain: 0 (10/29/2023 10:44) HEENT:PERRL, EOMI, Fundi benign, TM's clear, Pharynx not red and without exudate, tonsils normal size. Bilateral nares erythremic and narrow. NECK: Supple, no lymhadenopathy, thyroid normal. CARDIAC: Regular rate and rhythm without murmur. No edema. RESPIRATORY: CTA, BEBS GI: Abdomen soft,with ABS. MUSCULOSKELETAL:Generalized lumbosacral back pain with no acute change. SKIN: [place] without rash or lesions. NEUROLOGICAL: The is alert and oriented without distress. Affect appropriate. IMPRESSION: Alcohol Abuse-in remission Low Back Pain-chronic Sleep Apnea-chronic Epistaxis-current PLAN: Lumbar xray today. Increase water intake. Support given for alcohol remission. Number to cpap given provided. Discussed reasons for rash. to return for labs in September or sooner if needed. Patient is advised this primary care clinic has open access and he can make a same day appointment anytime a problem/concern arises. Patient further advised he can be seen on a walk-in basis as needed. Patient is provided clinic contact information. Medications reviewed and reconciled. Discussed diet and exercise as relevant to patient conditions. Treatment plan as noted above and the After Visit Summary was reviewed with ; opportunity provided to report concerns and ask question regarding aspects of care or treatment or services; concurrence reached and verbalized understanding. Please refer to addendum or follow up lab letter for plan of care/changes related to lab/test results not available at conclusion of appointment, if any. Discussed with patient that in the event of community imaging / testing being ordered in the future, once the imaging / testing has been completed, please notify PACT of within 1 week by a [facility] PACT member; this is due to intermittent lapses in notification of imaging completion within [facility]. All questions answered; agrees to plan of care. Follow up as listed above, annually, and as needed. Keep all completion at outside facility if not called with results appointments. Medications Reconciled. Time spent 30 minutes. /huseyin/ [facility] Signed: 09/04/2024 13:00 JORDY CHAWDICK Aug 23, 2024 11:14 AM PRIMARY CARE NURSING NOTE: LOCAL TITLE: PRIMARY CARE NURSING PROGRESS NOTE (TEXT) NURSING P STANDARD TITLE: PRIMARY CARE NURSING NOTE DATE OF NOTE: AUG 23, 2024@11:14 ENTRY DATE: AUG 23, 2024@11:14:16 AUTHOR: TAN MOORE COSIGNER: URGENCY: STATUS: COMPLETED Established Patient CINDY QIU IS A 38 YEAR OLD MALE BEING SEEN IN CLINIC AUG 23, 2024. REASON FOR VISIT: Clifton here today with his and 3 of his children. He is here today with reports of worsening back pain. He reports he quit drinking alcohol 2 months ago and states he is feeling everything now. He states he can hear clicking in his back sometimes. He states he is not able to get relief with meds, or repositioning. He is also reports epistaxis every other day and states it is copious amounts of blood. He believes his CPAP is drying out his nose, gave him the number to the CPAP Clinic to assist in his CPAP equipment. He is also, c/o joint pain all over and his reports she notices a butterfly rash on his face. Are you receiving care any where other than the [facility]? No HEALTH AND SURGICAL HISTORY: Does patient report using home oxygen? No CURRENT ACTIVE MEDICATIONS FOR REVIEW: Allergies/ADRs (Tool #5) FACILITY ALLERGY/ADR -------- No Remote Allergy/ADR Data available for this patient [facility] No Known Allergies Med. Reconciliation (Tool #1) INCLUDED IN THIS LIST: Alphabetical list of active outpatient prescriptions dispensed from this [place] (local) and dispensed from another [place] or [facility] facility (remote) as well as inpatient orders (local pending and active), local clinic medications, locally documented non-VA medications, and local prescriptions that have or been discontinued in the past 90 days. Non-VA Meds Last Documented On: Data not found NOTE The display of VA prescriptions dispensed from another [place] or [facility] facility (remote) is limited to active outpatient prescription entries matched to National Drug File at the originating site and may not include some items such as investigational drugs, compounds, etc. NOT INCLUDED IN THIS LIST: Medications self-entered by the patient into personal health records (i.e. [employer]) are NOT included in this list. Non-VA medications documented outside this [place], remote inpatient orders (regardless of status) and remote clinic medications are NOT included in this list. The patient and provider must always discuss medications the patient is taking, regardless of where the medication was dispensed or obtained. OUTPT ALBUTEROL 90MCG (CFC-F) 200D ORAL INHL (Status = Active) INHALE 2 PUFFS BY ORAL INHALATION FOUR TIMES A DAY NEEDED FOR ASTHMA SHAKE WELL. RINSE MOUTHPIECE FREQUENTLY TO PREVENT CLOGGING. Rx# [id number] Last Released: 03/31/24 Qty/Days Supply: Rx Expiration Date: 03/27/25 Refills Remainin Indication: FOR ASTHMA OUTPT DULOXETINE HCL 60MG EC CAP (Status = ) TAKE ONE CAPSULE BY MOUTH ONCE A DAY FOR DEPRESSION DO NOT ABRUPTLY DISCONTINUE MEDICATION. Rx# [id number] Last Released: 07/26/24 Qty/Days Supply: Rx Expiration Date: 08/14/24 Refills Remainin Indication: FOR DEPRESSION OUTPT FENOFIBRATE 145MG TAB (Status = Active) TAKE ONE TABLET BY MOUTH ONCE A DAY FOR HIGH TRIGLYCERIDES - TAKE WITH FOOD Rx# [id number] Last Released: 05/20/24 Qty/Days Supply: Rx Expiration Date: 05/20/25 Refills Remainin Indication: FOR HIGH TRIGLYCERIDES OUTPT FLUTICAS 250/SALMETEROL 50 INHL DISK 60 (Status = Active) INHALE 1 INHALATION BY ORAL INHALATION TWICE A DAY FOR COPD (OPEN DISKUS; CLICK ONLY ONCE; MAY INHALE TWICE TO COMPLETE DOSE; CLOSE WHEN FINISHED) RINSE MOUTH AND SPIT AFTER EACH USE. Rx# [id number] Last Released: 03/31/24 Qty/Days Supply: Rx Expiration Date: 03/27/25 Refills Remainin Indication: FOR COPD OUTPT HYDROCHLOROTHIAZIDE 25MG TAB (Status = Discontinued) TAKE ONE TABLET BY MOUTH ONCE A DAY FOR HIGH BLOOD PRESSURE Rx# [id number] Last Released: 03/25/24 Qty/Days Supply: Rx Expiration Date: 07/15/24 Refills Remainin Indication: FOR HIGH BLOOD PRESSURE OUTPT HYDROCHLOROTHIAZIDE 25MG TAB (Status = Active) TAKE ONE TABLET BY MOUTH ONCE A DAY FOR HIGH BLOOD PRESSURE Rx# [id number] Last Released: 07/22/24 Qty/Days Supply: Rx Expiration Date: 07/21/25 Refills Remainin Indication: FOR HIGH BLOOD PRESSURE OUTPT METOPROLOL SUCCINATE 200MG SA TAB (Status = Active) TAKE ONE TABLET BY MOUTH ONCE A DAY FOR HIGH BLOOD PRESSURE SWALLOW WHOLE, DO NOT CRUSH OR CHEW (TABLETS MAY BE CUT IN HALF). Rx# [id number] Last Released: 07/26/24 Qty/Days Supply: Rx Expiration Date: 03/27/25 Refills Remainin Indication: FOR HIGH BLOOD PRESSURE OUTPT SUMATRIPTAN SUCCINATE 50MG TAB (Status = Active) TAKE ONE TABLET BY MOUTH ONE-TIME FOR MIGRAINE. TAKE AT ONSET OF HEADACHE. MAY REPEAT AFTER 2 HOURS. NOT TO EXCEED 2 TABLETS IN 24 HOURS. Rx# [id number] Last Released: 12/25/23 Qty/Days Supply: Rx Expiration Date: 09/30/24 Refills Remainin OUTPT TEMAZEPAM 15MG CAP (Status = Active) TAKE ONE CAPSULE BY MOUTH AT BEDTIME NEEDED FOR INSOMNIA Rx# [id number] Last Released: 07/22/24 Qty/Days Supply: Rx Expiration Date: 09/26/24 Refills Remainin Indication: FOR INSOMNIA SUPPLIES PHARMACY TERMS AND POSSIBLE PATIENT ACTIONS [place]PT = [place] IV = [place] intravenous medication OUTPT = [place] outpatient prescription PHARMACY POSSIBLE PATIENT TERMS EXPLANATION ACTIONS -------- -- ACTIVE A prescription that can be If you have refills, filled at the local [place] pharmacy. you may request a refill of this prescription from your [place] pharmacy. CLINIC A medication you received during If you have questions a visit to a [facility] clinic or about this medication emergency department. contact your VA healthcare team. DISCONTINUED A prescription your provider has Contact your [facility] stopped. It is no longer healthcare team if you available to be sent to you or need more of this picked up at the [place] pharmacy medication. window. A prescription which is too old Contact your [facility] to fill. This does not refer to healthcare team if you the expiration date of the need more of this medication in the container. medication. NON-VA A medication that came from If this medication someplace other than a VA information is pharmacy. This may be a incorrect or out of prescription from either the VA date, please tell your or non VA providers that was VA healthcare team. filled outside the VA. Or, it may be an orag-fch-tgrvwaq (OTC), herbal, dietary supplements or sample medication. ON HOLD An active prescription that will Contact your [facility] not be filled until pharmacy pharmacy when you need resolves the issue. more of this medication. PARKED An active prescription that will Contact your [facility] not be filled until the patient pharmacy when you need requests it. this medication. PENDING This prescription order has been If you have been sent to the pharmacy for review instructed to start and is not ready yet. this medication now, contact your [facility] pharmacy. SUSPENDED An active prescription that is Contact your [place] not scheduled to be filled yet. pharmacy if you need You should receive it before this medication now. you run out. ====== Medication list reviewed with Patient Patient/Caregiver reports taking medications as ordered. IS PATIENT TAKING ANY OVER THE COUNTER MEDICATIONS, SUCH VITAMINS OR HERBAL SUPPLEMENTS, INCLUDING ANY MEDICATIONS PRESCRIBED BY ANOTHER PHYSICIAN? No Does patient have any new allergies to report since last visit? NO VITALS: TEMPERATURE: 97.9 F [36.6 C] (10/29/2023 10:35) BP: 138/90 (10/29/2023 10:44) RESP: 18 (10/29/2023 10:44) PULSE: 57 (10/29/2023 10:35) HT: 69 in [175.3 cm] (10/29/2023 10:44) WT: 249.5 lb [113.17 kg] (10/29/2023 10:44) BMI: 36.9 PAIN ASSESSMENT: (Most Recent Pain Score in Vitals Package: 0 (10/29/2023 10:44) ) The patient indicated that they and their close contacts have not traveled outside of the [place] in the past 21 days. The patient reports the following symptoms: No symptoms present The patient is not immunocompromised. The patient does not report having a history of Multi Drug Resistant Organism (MDRO) within the last five years. The patient does not report having been exposed to measles, chickenpox, or zoster in last 30 days. Patient reports no pain at this visit. Pain Score = 0. STRESS: Thank you for your service. Now let us serve you. At the [facility], we strive to provide you with exceptional health care that improves your health and well-being. Are you feeling sad, empty, or depressed? No Do you need to talk about things in your life that worry you or cause you stress? No Do you need to talk about personal problems, family problems, alcohol use, drug use, or mental or emotional illness? No SUICIDE SCREENING: The patient was asked, Over the past two weeks, how often have you been bothered by thoughts that you would be better off or of hurting yourself in some way? Not At All SPIRITUAL ASSESSMENT: Are there orthodoxy practices or spiritual concerns you want the brand ambassador promotional model, your physician, and other health care team members to immediately know about? No Patient advised to call the clinic for any concerns, questions, or symptoms. Patient and/or caregiver verbalized understanding of plan of care. RHS Screen - VS: RHS Screen Session Format: Face to Face Environmental Check Screening was not completed at this time due to: Child over 2 years old present Another adult present COVID-19 Immunization - L,N,P,PH,U: Refused Moderna Monovalent COVID-19 vaccine Immunization: COVID-19 (MODERNA), MRNA, LNP-S, PF, 50 MCG/0.5 ML (AGES 12+ YEARS) Refusal Reason: PATIENT DECISION Patient refuses all immunization(s) in the COVID-19 group Date Documented: 08/23/24 11:32 Advanced Directive Screen/Industrial Truck Driver: ADVANCE DIRECTIVE SCREENING: I asked if the patient has an advance directive, and determined that: Patient has an Advance Directive. Patient does not wish to make any changes to the Advance Directive at this time. ADVANCE DIRECTIVE NOTIFICATION I provided the patient with written notification about advance directives. Level of understanding: Influenza Immunization - L,N,P,PH,U: Deferral / Refusal The patient declines to receive the recommended dose of seasonal influenza vaccine. Immunization: INFLUENZA, UNSPECIFIED FORMULATION Refusal Reason: PATIENT DECISION Patient refuses all immunization(s) in the FLU group Date Documented: 08/23/24 11:33 PTSD Screening - V: PC-PTSD-5 A PTSD screening test (PC-PTSD-5) was negative (score=0). IN THE PAST MONTH, have you ever had any experience that was so frightening, horrible or traumatic. For example: A serious accident or fire a physical or sexual assault or abuse An earthquake or flood A war Seeing someone be killed or seriously injured Having a loved one through homicide or suicide 1. Have you ever experienced this kind of event? YES 2. Had nightmares about the event(s) or thought about the event(s) when you did not want to? NO 3. Tried hard not to think about the event(s) or went out of your way to avoid situations that reminded you of the event(s)? NO 4. Been constantly on guard, watchful, or easily startled? NO 5. [place] numb or detached from people, activities, or your surroundings? NO 6. [place] guilty or unable to stop blaming yourself or others for the event(s) or any problems the event(s) may have caused? NO MOVE Weight Management: Most recent BMI: 37.4. [place] educated on health risk of obesity and treatment is offered. Participation in a weight management program was considered/offered for this patient based on the current BMI score. Patient declines participation in a weight management program. Pneumococcal Conjugate Vaccine (PCV15/PCV20/PCV21) - L,N,P,PH,U: Refuses PCV vaccine Immunization: PNEUMOCOCCAL CONJUGATE, UNSPECIFIED FORMULATION Refusal Reason: PATIENT DECISION Patient refuses all immunization(s) in the PneumoPCV group Date Documented: 08/23/24 11:34 VVC DIGITAL DIVIDE CAPABILITY REMINDER: Patient is not interested in VVC at this time. 'S RIGHT TO DECLINE STATEMENT [place] understands they have the right to decline the use of Telehealth Technology at any time without adverse affects on their continued access to healthcare. [facility] - PHP MAP: PERSONAL HEALTH PLAN INVENTORY & MAP [place]'s Response: family /es/ TAN MOORE LPN Signed: 08/23/2024 11:34 [facility] MO[facility]
--- OUTSIDE RECORDS SUMMARY | 2024-11-29 09:00 | XMS_ITS ---
Author Organization [facility] Address [address] [place] [address] Care Team Providers Care Burlapper Name Role Phone Pattie Crow Primary Care Provid er Unavailable Bunny Dillard Unavailable [phone] Jolene Stephens Unavailable [phone] REASON FOR VISIT s/p 10/18/24 4 week f/u wXR prior ([facility]) Encounters Encounter Location Date Provider Diagnosis [facility] [place] [address] 11/29/2024 Jolene Stephens Plan Of Treatment Next Appt Details Provider Name:Jolene Stephens , 03/07/2025 01:30:00 PM, [place], [address], Progress Notes * CINDY QIUDOB:1985 (39 yo M)Acc No.[id number]:11/29/2024 Patient: CINDY LEON Provider: JACQUELIN Mccord FNP :1985 A ge:39 Y S ex:Male Date:11/29/2024 Address:[address] [place] [address] [id number], [place], [id number] Pcp:Pattie ZHANG, JOE BC Subjective: * Chief Complaints: * s /p 10/18/24 4 week f/u wXR prior ([facility]) * Electronic signature of Parth Stephens APRN on 12/25/2024 at 08:18 AM CDT Sign off status: Pending * Provider: JACQUELIN Mccord, FRIT MAKER Date: 0 11/29/2024 Generated for Roland crane/Bridgette/Jose on: 12/25/2024 08:18 AM CDT
--- OUTSIDE RECORDS SUMMARY | 2024-12-15 09:00 | XMS_ITS | Encounter Summary ---
Author Name [facility] ([place] Organization [facility] ([place]) Address [address] [place] [address] Care Team Providers Care Senior Electronics Design Engineer Name Role Phone JORDY CHADWICK Primary Care [...] VISIO N PREFE R Jun 01, 2020 [id number] [phone] [id number] [phone] MINA QIU PATIENT Selected Encounter This section includes the information on record at [place] for the Encounter. Date/Time Encounter Type Encounter Description Reason Provider Source Dec 15, 2024 02:00 PM OFFICE O/P EST LOW 20 MIN PRIMARY CARE/MEDICINE ICD-10-CM J06.9 Acute upper respiratory infection, unspecified WILMER CHADWICK Encounter Template Text not used by [place] Assessments - Encounter Diagnoses This section includes the primary and secondary diagnoses documented for the Encounter. Date/Time Primary/Secondary Diagnosis Diagnosis Name Provider Source Dec 23, 2024 06:10 AM PRIMARY Acute upper respiratory infection, unspecified BENNY CHADWICK [facility] Plan of Treatment: Future Appointments (+ 6 months) and Future Tests (+/- 45 days) The Plan of Treatment section includes future care activities for the patient from all [place] treatmentfaunc health nashities. This section includes future appointments and future orders which are active, pending or scheduled. Future Appointments This section includes appointments that were scheduled to occur 6 months from the date of the Encounter, up to a maximum of 20 appointments. The data comes from all [place] treatment facilities. Appointment Date/Time Appointment Type Appointme nt Facility Name Dec 19, 2024 03:15 PM AMBULATORY - MEDICINE [facility] Jan 02, 2025 10:00 AM AMBULATORY - MEDICINE [facility] Vital Signs: All taken on the encounter date This section contains inpatient and outpatient Vital Signs collected on the date of the Encounter. Date/Time Temperature Pulse Blood Pressure Respiratory Rate SP02 Pain Height Weight Body Mass Index Source Dec 15, 2024 02:40 PM 98.1 F 100 /min 127/88 mm[Hg] 20 /min 97 % 6 69.0 in 259.7 lb 38 [facility] Social History: Smoking Status (Most current) and Tobacco Use (All prior to encounter date) This section includes the most current, and the historical, smoking and tobacco- related health factors from the [place] facility where the Encounter took place. Current Smoking Status This section includes the most current smoking, or tobacco-related health factor, from the [place] facility where the Encounter took place. Date/Time Current Smoking Status Comment Facil ity October 29, 2023 10:30 AM VA-TOBACCO DOESNT USE WI 30 MIN WAKEUP [facility] Tobacco Use History This section includes a history of the smoking, or tobacco-related health factors, that were collected on or before the date of the Encounter. The data comes from the [place] facility where the Encounter took place. Date/Time Smoking Status/Tobacco Use Comment F acility October 29, 2023 10:30 AM VA-TOBACCO USE 30 YEARS OR MORE [facility] October 29, 2023 10:30 AM VA-TOBACCO USE ADVICE [facility] October 29, 2023 10:30 AM VA-TOBACCO USE HERD TESTER NO [facility] October 29, 2023 10:30 AM VA-TOBACCO USE MED NO [facility] October 29, 2023 10:30 AM VA-TOBACCO USER EVERY DAY [facility] Oct 30, 2022 10:30 AM VA-TOBACCO NEVER USED [facility] Feb 01, 2021 08:30 AM VA-TOBACCO NEVER USED [facility] Mar 29, 2019 11:14 AM VA-TOBACCO NEVER USED [facility] Apr 06, 2018 08:06 AM VA-TOBACCO NEVER USED [facility] Nov 01, 2015 02:02 PM LIFETIME NON-USER OF TOBACCO [facility] Encounter Notes: All associated encounter notes This section contains the clinical notes associated to the Encounter. Date/Time Encounter Note(s) Provider Source Dec 15, 2024 03:01 PM PRIMARY CARE PROGRESS NOTE: LOCAL TITLE: PRIMARY CARE CLINIC PROGRESS NOTE PB STANDARD TITLE: PRIMARY CARE PROGRESS NOTE DATE OF NOTE: DEC 15, 2024@15:01 ENTRY DATE: DEC 15, 2024@15:01:33 AUTHOR: JORDY CHADWICK COSIGNER: URGENCY: STATUS: COMPLETED PROVIDER ASSESSMENT DATE & TIME:Nov@15:01 CHIEF COMPLAINT: Sinus pain and pressure, sore throat, ear pain. HISTORY OF PRESENT ILLNESS: is being seen for some bilateral ear pain and sore throat. has had some slight shortness of breath, vertigo and sinus drainage. He states he has a sinus headace with his sore throat and right ear pain is worse than the left. He does not have a productive cough. He denies any recent antibiotic use. 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 RINSE MOUTHPIECE FREQUENTLY TO PREVENT CLOGGING. Indication: FOR ASTHMA 2) DULOXETINE HCL 60MG EC CAP TAKE ONE CAPSULE BY MOUTH ONCE A ACTIVE DAY DO NOT ABRUPTLY DISCONTINUE MEDICATION. Indication: FOR DEPRESSION 3) FENOFIBRATE 145MG TAB TAKE ONE TABLET BY MOUTH ONCE A DAY - ACTIVE TAKE WITH FOOD Indication: FOR HIGH TRIGLYCERIDES 4) FLUTICAS 250/SALMETEROL 50 INHL DISK 60 INHALE 1 INHALATION ACTIVE BY ORAL INHALATION TWICE A DAY (OPEN DISKUS; CLICK ONLY ONCE; MAY INHALE TWICE TO COMPLETE DOSE; CLOSE WHEN FINISHED) RINSE MOUTH AND SPIT AFTER EACH USE. Indication: FOR COPD 5) HYDROCHLOROTHIAZIDE 25MG TAB TAKE ONE TABLET BY MOUTH ONCE A ACTIVE DAY Indication: FOR HIGH BLOOD PRESSURE 6) METOPROLOL SUCCINATE 200MG SA TAB TAKE ONE TABLET BY MOUTH ACTIVE ONCE A DAY SWALLOW WHOLE, DO NOT CRUSH OR CHEW (TABLETS MAY BE CUT IN HALF). Indication: FOR HIGH BLOOD PRESSURE 7) TEMAZEPAM 15MG CAP TAKE ONE CAPSULE BY MOUTH AT BEDTIME ACTIVE NEEDED Indication: FOR INSOMNIA REVIEW OF SYSTEMS: HEENT: No Headache. No blurry vision, vision loss, eye pain, red eyes, or foreign body. No runnynose, or nose bleed. No hearing loss, ringing in the ears, or vertigo. No sore throat or dental pain. positive congestion. RESPIRATORY: No cough, SOA, wheezing, or sputum production. CARDIOVASCULAR: No chest pain, palpitations, tachycardia, PND, or orthopnea. GI: No abdominal pain, nausea, vomiting, diarrhea, constipation, melena, or hematochezia. : No dysuria, hematuria, urinary frequency, weak stream, or post-void dribbling. MUSCULOSKELETAL:No muscle or joint pain. SKIN: No rash, lesions, or infection PSYCH: No Depression or Anxiety. Not suicidal. PHYSICAL ASSESSMENT: VITAL SIGNS Pulse: 100 (12/15/2024 14:40) Blood Pressure: 127/88 (12/15/2024 14:40) Respiratory Rate: 20 (12/15/2024 14:40) Temperature: 98.1 F [36.7 C] (12/15/2024 14:40) Weight: 259.7 lb [117.80 kg] (12/15/2024 14:40) Height: 69.0 in [175.3 cm] (12/15/2024 14:40) Pain: 6 (12/15/2024 14:40) HEENT:PERRL, EOMI, Fundi benign, TM's dull yellow, Pharynx erythremic and with yellow exudate, tonsils normal size. positive frontal sinus pressure. NECK: Supple, no lymhadenopathy, thyroid normal. CARDIAC: Regular rate and rhythm without murmur. No edema. RESPIRATORY: CTA, BEBS GI: Abdomen soft,with ABS. MUSCULOSKELETAL:No muscle or joint tenderness. FROM. SKIN: [place] without rash or lesions. NEUROLOGICAL: The [place] is alert and oriented without distress. IMPRESSION: Upper Respiratory Infection-current PLAN: Augmentin 875/125mg one po bid for 7 days #14 0r given to to fill on the immediate need benefit plan. Increase water intake. Continue current medications. Ibuprofen/tylenol as directed for pain/fever. RTC or go to ER if symptoms continue or worsen. Patient is advised this primary care clinic has open access and he can make a same day appointment anytime a problem/concern arises. Patient further advised he can be seen on a walk-in basis as needed. Patient is provided clinic contact information. Medications reviewed and reconciled. Opportunity provided to report concerns and ask questions. Discussed diet and exercise as relevant to patient conditions. Please refer to addendum or follow up [...] 30 minutes. /huseyin/ [facility] Signed: 12/23/2024 06:10 OJRDY CHADWICK Dec 15, 2024 02:33 PM PRIMARY CARE NURSING NOTE: LOCAL TITLE: PRIMARY CARE NURSING PROGRESS NOTE (TEXT) NURSING P STANDARD TITLE: PRIMARY CARE NURSING NOTE DATE OF NOTE: DEC 15, 2024@14:33 ENTRY DATE: DEC 15, 2024@14:34:25 AUTHOR: TAN MOORE COSIGNER: URGENCY: STATUS: COMPLETED Established Patient CINDY QIU IS A 39 YEAR OLD MALE BEING SEEN IN CLINIC DEC 15, 2024. REASON FOR VISIT: Here today for c/o SOB, Vertigo, Sore throat, general not feeling well, Right Ear Pain and sinus drainage. Reports he just does not feel well. Are you receiving care any where other than the [facility]? No HEALTH AND SURGICAL HISTORY: Does patient report using home oxygen? No CURRENT ACTIVE MEDICATIONS FOR REVIEW: If the list for review does not include a component, then it was not applicable to this patient. Allergies/ADRs (Tool #5) FACILITY ALLERGY/ADR -------- No Remote Allergy/ADR Data available for this patient [facility] No Known Allergies Med. Reconciliation (Tool #1) INCLUDED IN THIS LIST: Alphabetical list of active outpatient prescriptions dispensed from this [facility] (local) and dispensed from another VA or DoD facility (remote) as well as inpatient orders (local pending and active), local clinic medications, locally documented non-VA medications, and local prescriptions that have or been discontinued in the past 90 days. Non-VA Meds Last Documented On: Data not found NOTE The display of VA prescriptions dispensed from another VA or DoD facility (remote) is limited to active outpatient prescription entries matched to National Drug File at the originating site and may not include some items such as investigational drugs, compounds, etc. NOT INCLUDED IN THIS LIST: Medications self-entered by the patient into personal health records (i.e. [employer]) are NOT included in this list. Non-VA medications documented outside this [place], remote inpatient orders (regardless of status) and [...] RINSE MOUTHPIECE FREQUENTLY TO PREVENT CLOGGING. Rx# [id number] Last Released: 10/13/24 Qty/Days Supply: Rx Expiration Date: 03/27/25 Refills Remainin Indication: FOR ASTHMA OUTPT DULOXETINE HCL 60MG EC CAP (Status = Active) TAKE ONE CAPSULE BY MOUTH ONCE A DAY FOR DEPRESSION DO NOT ABRUPTLY DISCONTINUE MEDICATION. Rx# [id number] Last Released: 12/09/24 Qty/Days Supply: Rx Expiration Date: 12/07/25 Refills Remainin Indication: FOR DEPRESSION OUTPT FENOFIBRATE 145MG TAB (Status = Active) TAKE ONE TABLET BY MOUTH ONCE A DAY FOR HIGH TRIGLYCERIDES - TAKE WITH FOOD Rx# [id number] Last Released: 10/13/24 Qty/Days Supply: Rx Expiration Date: 05/20/25 Refills Remainin Indication: FOR HIGH TRIGLYCERIDES OUTPT FLUTICAS 250/SALMETEROL 50 INHL DISK 60 (Status = Active) INHALE 1 INHALATION BY ORAL INHALATION TWICE A DAY FOR COPD (OPEN DISKUS; CLICK ONLY ONCE; MAY INHALE TWICE TO COMPLETE DOSE; CLOSE WHEN FINISHED) RINSE MOUTH AND SPIT AFTER EACH USE. Rx# [id number] Last Released: 10/13/24 Qty/Days Supply: Rx Expiration Date: 03/27/25 Refills Remainin Indication: FOR COPD OUTPT HYDROCHLOROTHIAZIDE 25MG TAB (Status = Active) TAKE ONE TABLET BY MOUTH ONCE A DAY FOR HIGH BLOOD PRESSURE Rx# [id number] Last Released: 07/22/24 Qty Supply: Rx Expiration Date: 07/21/25 Refills Remainin Indication: FOR HIGH BLOOD PRESSURE OUTPT METOPROLOL SUCCINATE 200MG SA TAB (Status = Active) TAKE ONE TABLET BY MOUTH ONCE A DAY FOR HIGH BLOOD PRESSURE SWALLOW WHOLE, DO NOT CRUSH OR CHEW (TABLETS MAY BE CUT IN HALF). Rx# [id number] Last Released: 12/06/24 Qty/Days Supply: Rx Expiration Date: 03/27/25 Refills Remainin Indication: FOR HIGH BLOOD PRESSURE OUTPT SUMATRIPTAN SUCCINATE 50MG TAB (Status = ) TAKE ONE TABLET BY MOUTH ONE-TIME FOR MIGRAINE. TAKE AT ONSET OF HEADACHE. MAY REPEAT AFTER 2 HOURS. NOT TO EXCEED 2 TABLETS IN 24 HOURS. Rx# [id number] Last Released: 12/25/23 Qty/Days Supply: Rx Expiration Date: 09/30/24 Refills Remainin OUTPT TEMAZEPAM 15MG CAP (Status = Discontinued) TAKE ONE CAPSULE BY MOUTH AT BEDTIME NEEDED FOR INSOMNIA Rx# [id number] Last Released: 07/22/24 Qty/Days Supply: Rx Expiration Date: 09/26/24 Refills Remainin Indication: FOR INSOMNIA OUTPT TEMAZEPAM 15MG CAP (Status = Active) TAKE ONE CAPSULE BY MOUTH AT BEDTIME NEEDED FOR INSOMNIA Rx# [id number] Last Released: 12/07/24 Qty/Days Supply: Rx Expiration Date: 04/15/25 Refills Remainin Indication: FOR INSOMNIA SUPPLIES PHARMACY TERMS AND POSSIBLE PATIENT ACTIONS INPT = [place] inpatient order IV = [place] intravenous medication OUTPT = [place] outpatient prescription PHARMACY POSSIBLE PATIENT TERMS EXPLANATION ACTIONS -------- -- ACTIVE A prescription that can be If you have refills, filled at the local [place] pharmacy. you may request a refill of this prescription from your [facility] pharmacy. CLINIC A medication you received during If you have questions a visit to a [place] clinic or about this medication emergency department. contact your [place] healthcare team. DISCONTINUED A prescription your provider has Contact your [facility] stopped. It is no longer healthcare team if you available to be sent to you or need more of this picked up at the [place] pharmacy medication. window. A prescription which is [...] the VA. Or, it may be an gdar-jur-kvdcekl (OTC), herbal, dietary supplements or sample medication. [...] An active prescription that is Contact your [facility] not scheduled to be filled yet. pharmacy [...] 97.9 F [36.6 C] (10/29/2023 10:35) BP: 113/69 (08/23/2024 11:24) RESP: 16 (08/23/2024 11:24) PULSE: 66 (08/23/2024 11:24) HT: 69.0 in [175.3 cm] (08/23/2024 11:24) WT: 252.6 lb [114.58 kg] (08/23/2024 11:24) BMI: 37.4 PAIN ASSESSMENT: (Most Recent Pain Score in [...] chickenpox, or zoster in last 30 days. This patient's last pain assessment score was: 0 (10/29/2023 10:44). A detailed pain assessment showed the following: Pain characteristics (per patient's own words) Constant, Aching Location of current pain General not feeling well, ear STRESS: Thank you for your service. Now let us serve you. At the [facility], we strive to provide you with exceptional [...] Not At All SPIRITUAL ASSESSMENT: Are there sikhism practices or spiritual concerns you want the data acquisition technician, your physician, and other health care team members to immediately know about? No Patient advised to call the clinic for any concerns, questions, or symptoms. Patient and/or caregiver verbalized understanding of plan of care. /huseyin/ TAN MOORE LPN Signed: 12/15/2024 15:04 TAN MOORE [facility]
--- OUTSIDE RECORDS SUMMARY | 2024-12-25 08:17 | XMS_ITS | Continuity of Care Document ---
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 Lab: [place] [facility] [address] [place] [address] 8 Performin g Lab: [place] [facility] [address] [place] [address] 8 [facility] CBC NEUTROPHILS /100 LEUKOCYTES IN BLOOD BY AUTOMATED COUNT 48.9 10/28 Specimen Type: BLOOD No comment entered. Ordering Provider: Bruno CHADWICK Report Released Date/Time : October 29, 2023 10:23 AM Reporting Lab: [place] [facility] [address] [place] [address] 8 Performin g Lab: [place] [facility] [address] [place] [address] 8 [facility] CBC EOSINOPHILS /100 LEUKOCYTES IN BLOOD BY AUTOMATED COUNT 1.8 10/28 Specimen Type: BLOOD No comment entered. Ordering Provider: Bruno CHADWICK Report Released Date/Time : October 29, 2023 10:23 AM Reporting Lab: [place] [facility] [address] [place] [address] 8 Performin g Lab: [place] [facility] [address] [place] [address] 8 [facility] CBC BASOPHILS/1 00 LEUKOCYTES IN BLOOD BY AUTOMATED COUNT 0.4 10/28 Specimen Type: BLOOD No comment entered. Ordering Provider: Bruno CHADWICK Report Released Date/Time : October 29, 2023 10:23 AM Reporting Lab: [place] [facility] [address] [place] [address] 8 Performin g Lab: [place] [facility] [address] [place] [address] 8 [facility] CBC LYMPHOCYTES [#/VOLUME] IN BLOOD BY AUTOMATED COUNT 2.88 10*3/uL 0.77 - 4.50 10/28 Specimen Type: BLOOD No comment entered. Ordering Provider: Bruno CHADWICK Report Released Date/Time : October 29, 2023 10:23 AM Reporting Lab: [place] [facility] [address] [place] [address] 8 Performin g Lab: [place] [facility] [address] [place] [address] 8 [facility] CBC MONOCYTES [#/VOLUME] IN BLOOD BY AUTOMATED COUNT 0.59 10*3/uL 0.19 - 0.8 10/28 Specimen Type: BLOOD No comment entered. Ordering Provider: Bruno CHADWICK Report Released Date/Time : October 29, 2023 10:23 AM Reporting Lab: [place] [facility] [address] [place] [address] 8 Performin g Lab: [place] [facility] [address] [place] [address] 8 [facility] CBC NEUTROPHILS [#/VOLUME] IN BLOOD BY AUTOMATED COUNT 3.49 10*3/uL 2.10 - 8.00 10/28 Specimen Type: BLOOD No comment entered. Ordering Provider: Bruno CHADWICK Report Released Date/Time : October 29, 2023 10:23 AM Reporting Lab: [place] [facility] [address] [place] [address] 8 Performin g Lab: [place] [facility] [address] [place] [address] 8 [facility] CBC EOSINOPHILS [#/VOLUME] IN BLOOD BY AUTOMATED COUNT 0.13 10*3/uL 0.00 - 0.60 10/28 Specimen Type: BLOOD No comment entered. Ordering Provider: Bruno CHADWICK Report Released Date/Time : October 29, 2023 10:23 AM Reporting Lab: [place] [facility] [address] [place] [address] 8 Performin g Lab: [place] [facility] [address] [place] [address] 8 [facility] CBC BASOPHILS [#/VOLUME] IN BLOOD BY AUTOMATED COUNT 0.03 10*3/uL 0.00 - 0.20 10/28 Specimen Type: BLOOD No comment entered. Ordering Provider: Bruno CHADWICK Report Released Date/Time : October 29, 2023 10:23 AM Reporting Lab: [place] [facility] [address] [place] [address] 8 Performin g Lab: [place] [facility] [address] [place] [address] 8 [facility] CBC IMMATURE GRANULOCYTE S/100 LEUKOCYTES IN BLOOD BY AUTOMATED COUNT 0.3 10/28 Specimen Type: BLOOD No comment entered. Ordering Provider: Bruno CHADWICK R Report Released Date/Time : October 29, 2023 10:23 AM Reporting Lab: [place] [facility] [address] [place] [address] 8 Performin g Lab: [place] [facility] [address] [place] [address] 8 [facility] CBC IMMATURE GRANULOCYTE S [#/VOLUME] IN BLOOD BY AUTOMATED COUNT 0.02 10*3/uL 0.00 - 0.05 10/28 Specimen Type: BLOOD No comment entered. Ordering Provider: Bruno CHADWICK R Report Released Date/Time : October 29, 2023 10:23 AM Reporting Lab: [place] [facility] [address] [place] [address] 8 Performin g Lab: [place] [facility] [address] [place] [address] 8 [facility] URINALYSIS (STL-PB) COLOR OF URINE Light Yellow 10/28 Specimen Type: URINE No comment entered. Ordering Provider: Bruno CHADWICK Report Released Date/Time : October 29, 2023 10:23 AM Reporting Lab: [place] [facility] [address] [place] [address] 8 Performin g Lab: [place] [facility] [address] [place] [address] 8 [facility] URINALYSIS (STL-PB) BILIRUBIN.T OTAL [PRESENCE] IN URINE BY TEST STRIP NEGATIVEm g/dL 10/28 Specimen Type: URINE No comment entered. Ordering Provider: Bruno CHADWICK Report Released Date/Time : October 29, 2023 10:23 AM Reporting Lab: [place] [facility] [address] [place] [address] 8 Performin g Lab: [place] [facility] [address] [place] [address] 8 [facility] URINALYSIS (STL-PB) PH OF URINE BY TEST STRIP 5.5 5.0 - 8.0 10/28 Specimen Type: URINE No comment entered. Ordering Provider: Bruno CHADWICK Report Released Date/Time : October 29, 2023 10:23 AM Reporting Lab: [place] [facility] [address] [place] [address] 8 Performin g Lab: [place] [facility] [address] [place] [address] 8 [facility] URINALYSIS (STL-PB) APPEARANCE OF URINE CLEAR 10/28 Specimen Type: URINE No comment entered. Ordering Provider: Bruno CHADWICK Report Released Date/Time : October 29, 2023 10:23 AM Reporting Lab: [place] [facility] [address] [place] [address] 8 Performin g Lab: [place] [facility] [address] [place] [address] 8 [facility] URINALYSIS (STL-PB) NITRITE [PRESENCE] IN URINE BY TEST STRIP NEGATIVEm g/dL 10/28 Specimen Type: URINE No comment entered. Ordering Provider: Bruno CHADWICK Report Released Date/Time : October 29, 2023 10:23 AM Reporting Lab: [place] [facility] [address] [place] [address] 8 Performin g Lab: [place] [facility] [address] [place] [address] 8 [facility] URINALYSIS (STL-PB) GLUCOSE [MASS/VOLUM E] IN URINE BY TEST STRIP NORMALmg/ dL 10/28 Specimen Type: URINE No comment entered. Ordering Provider: Bruno CHADWICK Report Released Date/Time : October 29, 2023 10:23 AM Reporting Lab: [place] [facility] [address] [place] [address] 8 Performin g Lab: [place] [facility] [address] [place] [address] 8 [facility] URINALYSIS (STL-PB) PROTEIN [MASS/VOLUM E] IN URINE BY TEST STRIP NEGATIVEm g/dL - 20 10/28 Specimen Type: URINE No comment entered. Ordering Provider: Bruno CHADWICK Report Released Date/Time : October 29, 2023 10:23 AM Reporting Lab: [place] [facility] [address] [place] [address] 8 Performin g Lab: [place] [facility] [address] [place] [address] 8 [facility] URINALYSIS (STL-PB) URN.UROBILI NOGEN NORMALmg/ dL 10/28 Specimen Type: URINE No comment entered. Ordering Provider: Bruno CHADWICK Report Released Date/Time : October 29, 2023 10:23 AM Reporting Lab: [place] [facility] [address] [place] [address] 8 Performin g Lab: [place] [facility] [address] [place] [address] 8 [facility] URINALYSIS (STL-PB) HEMOGLOBIN [MASS/VOLUM E] IN URINE BY TEST STRIP NEGATIVEm g/dL 10/28 Specimen Type: URINE No comment entered. Ordering Provider: Bruno CHADWICK Report Released Date/Time : October 29, 2023 10:23 AM Reporting Lab: [place] [facility] [address] [place] [address] 8 Performin g Lab: [place] [facility] [address] [place] [address] 8 [facility] URINALYSIS (STL-PB) KETONES [MASS/VOLUM E] IN URINE BY TEST STRIP NEGATIVEm g/dL 10/28 Specimen Type: URINE No comment entered. Ordering Provider: Bruno CHADWICK Report Released Date/Time : October 29, 2023 10:23 AM Reporting Lab: [place] [facility] [address] [place] [address] 8 Performin g Lab: [place] [facility] [address] [place] [address] 8 [facility] URINALYSIS (STL-PB) URN.LEUK.ES T. NEGATIVE 10/28 Specimen Type: URINE No comment entered. Ordering Provider: Bruno CHADWICK Report Released Date/Time : October 29, 2023 10:23 AM Reporting Lab: [place] [facility] [address] [place] [address] 8 Performin g Lab: [place] [facility] [address] [place] [address] 8 [facility] URINALYSIS (STL-PB) SPECIFIC GRAVITY OF URINE 1.017 1.005 - 1.029 10/28 Specimen Type: URINE No comment entered. Ordering Provider: Bruno CHADWICK Report Released Date/Time : October 29, 2023 10:23 AM Reporting Lab: [place] [facility] [address] [place] [address] 8 Performin g Lab: [place] [facility] [address] [place] [address] 8 [facility] VITAMIN D, 25-HYDROXY 25-HYDROXYV ITAMIN D3 [MASS/VOLUM E] IN SERUM OR PLASMA 38.9 ng/mL 30 - 96 10/28 Specimen Type: SERUM No comment entered. Ordering Provider: Bruno CHADWICK Report Released Date/Time : October 29, 2023 10:23 AM Reporting Lab: [place] [facility] [address] [place] [address] 8 Performin g Lab: [place] [facility] [address] [place] [address] 8 [facility] [place] [facility] Vital Signs Combined list of inpatient and outpatient Vital Signs from Department of Defense and Veterans Affairs, ranging from 12 months to all on record, depending upon the facility. Vital Sign Value Date Comments Source SYSTOLIC BLOOD PRESSURE 127 12/15/2024 14:40:00 [facility] DIASTOLIC BLOOD PRESSURE 88 12/15/2024 14:40:00 [facility] PULSE OXIMETRY 97 % 12/15/2024 14:40:00 [facility] WEIGHT 259.7 12/15/2024 14:40:00 [facility] BMI 38 kg/m2 12/15/2024 14:40:00 [facility] PAIN 6 12/15/2024 14:40:00 [facility] HEIGHT 69.0 12/15/2024 14:40:00 [facility] TEMPERATURE 98.1 12/15/2024 14:40:00 [facility] PULSE 100 12/15/2024 14:40:00 [facility] RESPIRATION 20 12/15/2024 14:40:00 [facility] SYSTOLIC BLOOD PRESSURE 113 08/23/2024 11:24:00 [facility] DIASTOLIC BLOOD PRESSURE 69 08/23/2024 11:24:00 [facility] PULSE OXIMETRY 97 08/23/2024 11:24:00 [facility] WEIGHT 252.6 08/23/2024 11:24:00 [facility] BMI 37 kg/m2 08/23/2024 11:24:00 [facility] HEIGHT 69.0 08/23/2024 11:24:00 [facility] PULSE 66 08/23/2024 11:24:00 [facility] [facility] RESPIRATION 16 08/23/2024 11:24:00 [facility] Encounters Combined list of: 1) Encounters from Department of Veterans Affairs facilities going backup to the last 18 months, not all VA inpatient encounters are included; 2) Encounters from the Department of Defense facilities going backup to 280 months. Location Location Details Encounter Type Encounter Number Reason For Visit Attending Provider ADM Date DC Date Status Disposition Source [employer] [place] OUTPATIENT [id number] flu shot I_THELMAMATCHARITY 03/19 Released w/o Limitations [employer] [place] [employer] [place] OUTPATIENT [id number] Right Knee Pain RICCO NEGRON 07/30 Released w/o Limitations [employer] [place] [employer] [place]) OUTPATIENT [id number] Sore Throat AYAD REYNOLDS 08/01 Sick at Home/Quarter s [employer] [place]) [employer] [place]Fli ght Medicine Clinic) OUTPATIENT [id number] sick call JOSE RICO 01/04 Released w/o Limitations [employer] [place]) [employer] [place]) TELE CONSULT [id number] ER LOUISE Hernandez 01/15 [employer] [place]) [employer] [place]Opt ometry Clinic) OUTPATIENT [id number] [facility] for IF 3 NLT 0900 KATY TURNER 01/23 Released w/o Limitations [employer] [place]O ptometr y Clinic) [employer] [place]) OUTPATIENT [id number] IFC III DOC PART SUSSY MORENO 01/24 Released w/o Limitations [employer] [place]) [employer] [place] Medicine [facility]) OUTPATIENT [id number] sick call KATYLOUISE Bruno 03/04 Released with Work/Duty Limitations [employer] [place] [employer] [place] Medicine [facility]) TELE CONSULT [id number] Plastic surgery note CINDY BARBA 05/10 [employer] [place]F light Medicin e [facility]) [employer] [place] Medicine [facility]) OUTPATIENT [id number] IC to base ERNA DELGADOEL Chiara 10/14 Released w/o Limitations [employer] [place]) [employer] [place] Medicine [facility]) OUTPATIENT [id number] sick call f/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) JOURDAN CHAO 10/18 Released w/o Limitations [employer] [place]) [employer] [place]ing [facility] ecology [facility]) TELE CONSULT [id number] f/u sa results MOISÉS GARCIA 10/22 [employer] [place]G ynecolo gy Clinic) [employer] [place]) OUTPATIENT [id number] JOURDAN Mckeon 11/07 Released w/o Limitations [employer] [place]) [employer] [place]) OUTPATIENT [id number] CARSON Feliz 11/13 Released w/o Limitations [employer] [place]) [employer] [place] Medicine [facility]) OUTPATIENT [id number] Wart AMY Bryant 01/03 Released w/o Limitations [employer], [place] ([facility] [place] Medicin e Clinic) [employer], [place] ([facility] [place] Medicine [facility]) OUTPATIENT [id number] fly pha showtim e 0830 hrs AMY DELGADO 03/12 Released w/o Limitations [employer] [place] light Medic[facility] [employer], [place] ([facility] [place] Medicine [facility]) OUTPATIENT [id number] sick call (LBP) JOSEKELSEYDebra JAIMEOBINNA SHERWOOD 05/21 Released w/o Limitations [employer], [place] ([facility] [place] light Medic[facility] Clinic) [employer], [place] ([facility] [place] Medicine [facility]) TELE CONSULT [id number] Notes Entered by: EMMA GLASS 09 Jul 2011 1544 ------- ------- ------- ------- -- OUTPATI ENT PHYSICI AN CONSULT AMY GATES 07/09 [employer], [place] ([facility] [place] light Medic[facility] e Clinic) [employer], [place] ([facility] [place] Medicine [facility]) OUTPATIENT [id number] Notes Entered by: CHACORTA MOREL 04 Aug 2011 1012 ------- ------- ------- ------- -- RTFS AMY DELGADO 08/03 Released w/o Limitations [employer], [place] ([facility] [place] Medic[facility] e Clinic) [employer], [place] ([facility] [place] Medicine [facility]) OUTPATIENT [id number] Notes Entered by: CHACORTA MOREL 06 Oct 2011 0730 ------- ------- ------- ------- -- Sick Call CHACORTA MOREL 10/05 Released w/o Limitations [employer] [place]) [employer] [place]Opt [facility]metry [facility]) OUTPATIENT [id number] DFE - request ed by FSO // KATY Santamaria 10/12 Released w/o Limitations [employer] [place]O ptometr y Clinic) HOPE Mendoza([facility]) OUTPATIENT [id number] SHRADDHA GONZALEZ 11/17 Released w/o Limitations HOPE Mendoza([facility]) [employer] [place]) OUTPATIENT [id number] Notes Entered by: JAN LAMAR 03 Feb 2012 0731 ------- ------- ------- ------- -- Sick call ERNA BEE 02/02 Released w/o Limitations [employer] [place]) [employer] [place]) OUTPATIENT [id number] Notes Entered by: PANCHO STREETER I 25 Feb 2012 0738 ------- ------- ------- ------- -- RTFS ERNA BEE 02/24 Released w/o Limitations [employer] [place] Medic[facility] [employer] [place] [facility]) OUTPATIENT [id number] Flight PHA (re-nolan edufern) JOHN SHAW 04/06 Released w/o Limitations [employer]F light Medicin e Clinic) [employer]) TELE CONSULT [id number] Notes Entered by: Fadia CUEVAS 06 Apr 2013 1832 ------- ------- ------- ------- -- Aeromed ical Disposi tion RASHID CUEVAS 04/07 [employer], [place] ([facility]in e [facility]) [employer] ([facility] [place] Medicine [facility]) OUTPATIENT [id number] Notes Entered by: Pepper CHAVEZ 16 Jun 2013 0723 ------- ------- ------- ------- -- F/u JAIME BROWN 06/16 Released with Work/Duty Limitations [employer], [place] ([facility] [place] light Medicin e [facility]) [employer] [place] ([facility] [place]) TELE CONSULT [id number] Notes Entered by: MARCOS SMYTH 22 Jun 2013 0957 ------- ------- ------- ------- -- Network Results - ER Visit 06/14 RASHID CUEVAS 06/[employer], [place] ([facility] [place] light Medicin e [facility]) [employer] [place] ([facility] [place] Medicine [facility]) OUTPATIENT [id number] [facility] JAIME BROWN 06/28 Released w/o Limitations [employer], [place] ([facility]F light Medicin e Clinic) [employer] [place] ([facility] [place] domo Advocacy) OUTPATIENT [id number] Notes Entered by: Barak VELASQUEZ 07 Jul 2013 1604 ------- ------- ------- ------- -- [facility] LORENA EAGLE 07/08 Released w/o Limitations [employer]F amily Advocac y) [employer]Fam domo Advocacy) OUTPATIENT [id number] Notes Entered by: Barak VELASQUEZ 11 Jul 2013 1509 ------- ------- ------- ------- -- [facility] Albino/LORENA MARIEE 07/11 Released w/o Limitations [employer]F amily Advocac y) [employer]Fam domo Advocacy) OUTPATIENT [id number] Notes Entered by: Barak VELASQUEZ 19 Jul 2013 1355 ------- ------- ------- ------- -- [facility] LORENA GOMEZ 07/19 Released w/o Limitations [employer]F amily Advocac y) [employer]Fam domo Advocacy) OUTPATIENT [id number] Notes Entered by: Barak VELASQUEZ 21 Jul 2013 1537 ------- ------- ------- ------- -- [facility] LORENA EAGLE 07/21 Released w/o Limitations [employer]F amily Advocac y) [employer]) OUTPATIENT [id number] Notes Entered by: CECILIA HARDWICK 02 Aug 2013 0756 ------- ------- ------- ------- -- ANA M Foster 08/02 Released w/o Limitations [employer]F light Medicin e Clinic) [employer]Fam domo Advocacy) OUTPATIENT [id number] Notes Entered by: Barak VELASQUEZ PENNY P 08 Aug 2013 1544 ------- ------- ------- ------- -- MTXF/LORENA MARIEE 08/08 Released w/o Limitations [employer] [place]F amily Advocac y) [employer]Fam domo Advocacy) OUTPATIENT [id number] Notes Entered by: Barak VELASQUEZ P 16 Aug 2013 1245 ------- ------- ------- ------- -- MTX INTAKE LORENA EAGLE 08/16 Released w/o Limitations [employer]F amily Advocac y) [employer] domo Advocacy) OUTPATIENT [id number] Notes Entered by: Barak VELASQUEZ P 22 Aug 2013 1503 ------- ------- ------- ------- -- MTX F/LORENA MARIEE 08/22 Released w/o Limitations [employer]F amily Advocac y) [employer]Fam domo Advocacy) OUTPATIENT [id number] Notes Entered by: Barak VELASQUEZ P 25 Aug 2013 1524 ------- ------- ------- ------- -- Mens Group LORENA EAGLE 08/25 Released w/o Limitations [employer]F amily Advocac y) [employer]Opt ometry Clinic) OUTPATIENT [id number] IFC III - no scl's - show NLT 1300 // roscoe KATY TURNER 08/29 Released w/o Limitations [employer]O ptometr y Clinic) [employer]Fam domo Advocacy) OUTPATIENT [id number] Notes Entered by: Barak VELASQUEZ 31 Aug 2013 1402 ------- ------- ------- ------- -- MTX F/U LORENA EAGLE 08/31 Released w/o Limitations [employer]F amily Advocac y) [employer] [place] ght Medicine Clinic) OUTPATIENT [id number] Notes Entered by: JAN LAMAR 12 Oct 2013 0804 ------- ------- ------- ------- -- CRISTIAN Fernandez 10/12 Released w/o Limitations [employer]F light Medicin e Clinic) [employer] [place] ght Medicine [facility]) OUTPATIENT [id number] Notes Entered by: CECILIA HARDWICK 26 Oct 2013 0742 ------- ------- ------- ------- -- sore throat PROMISE LAMAR 10/26 Sick at Home/Quarter s [employer]F light Medicin e Clinic) [employer]) OUTPATIENT [id number] IF III ERNA BEE 12/09 Released w/o Limitations [employer]F light Medicin e Clinic) [employer] [place]) TELE CONSULT [id number] Notes Entered by: Barak LATIF 12 Dec 2013 0806 ------- ------- ------- ------- -- Network Results - ER Visit and Dischar ge Summary 12/12 ERNA BEE 12/12 [employer], [place] ([facility]) [employer] ([facility] [place] Medicine [facility]) TELE CONSULT [id number] Notes Entered by: MARCOS SMYTH 13 Dec 2013 1104 ------- ------- ------- ------- -- Network Results - ER Visit/D ischarg e Summary 12/12 ERNA BEE 12/13 [employer], [place] ([facility]) [employer] [place] [employer] ([facility] Medicine [facility]) OUTPATIENT [id number] ERNA King 12/30 Released w/o Limitations [employer], [place] ([facility]) [employer], [place] ([facility]) OUTPATIENT [id number] Notes Entered by: CECILIA HARDWICK 14 Mar 2014 0747 ------- ------- ------- ------- -- HEMAL Roberto 03/14 Released w/o Limitations [employer], [place] ([facility]) [employer] [place] ([facility] [place] Medicine [facility]) OUTPATIENT [id number] Notes Entered by: Pepper CHAVEZ 13 Jun 2014 0729 ------- ------- ------- ------- -- JOSE Gasca 06/13 Released with Work/Duty Limitations [employer], [place] ([facility]F light Medicin e Clinic) [employer] [place]) OUTPATIENT [id number] cough JOSE GALVAN 06/15 Sick at Home/Quarter s [employer] [place] ([facility]) [employer] [place] ([facility]) OUTPATIENT [id number] Notes Entered by: CECILIA HARDWICK 21 Jun 2014 0949 ------- ------- ------- ------- -- f/u JOSE GALVAN 06/21 Released with Work/Duty Limitations [employer] [place]) [employer] [place] ([facility]) TELE CONSULT [id number] Notes Entered by: HERO ANDRADE 21 Jun 2014 1415 ------- ------- ------- ------- -- Network Results - CT Chest 06/15 ERNA BEE 06/21 [employer] [place] ([facility]) [employer] [place] ([facility]) TELE CONSULT [id number] Notes Entered by: MARCOS SMYTH 21 Jun 2014 1444 ------- ------- ------- ------- -- Network Results - CT Chest (addend um) 06/15 ERNA BEE 06/21 [employer] [place] ([facility]) [employer] [place] ([facility]) TELE CONSULT [id number] Notes Entered by: LISANDRA FIGUEROA AM 22 Jun 2014 0913 ------- ------- ------- ------- -- F/u labs and x-rays JOSE GALVAN 06/22 [employer], [place] ([facility]) [employer], [place] ([facility]) OUTPATIENT [id number] Notes Entered by: Pepper CHAVEZ 26 Jun 2014 0733 ------- ------- ------- ------- -- Back MICHEAL CAMACHO 06/26 Released w/o Limitations [employer]) [employer], [place] ([facility]) TELE CONSULT [id number] Notes Entered by: Pepper CAMACHO 27 Jun 2014 1105 ------- ------- ------- ------- -- Follow up back pain MICHEAL CAMACHO 06/27 [employer], [place] ([facility]) [employer], [place] ([facility]) OUTPATIENT [id number] Notes Entered by: Pepper CHAVEZ 28 Jun 2014 0713 ------- ------- ------- ------- -- Throat trouble TODD NOBLES 06/28 Sick at Home/Quarter s [employer], [place] ([facility]) [employer], [place] ([facility]andin [facility] [facility] [place]) TELE CONSULT [id number] Notes Entered by: ANALI ELI 28 Jun 2014 0831 ------- ------- ------- ------- -- Network Results - MRI Right Knee 06/15 JOSE GALVAN 06/28 [employer], [place] ([facility]F airchil d [facility] [place] Team) [employer] [place] ([facility] Medicine [facility]) TELE CONSULT [id number] Notes Entered by: HERO ANDRADE 29 Jun 2014 0844 ------- ------- ------- ------- -- Network Results - ER Visit/D ischarg e 06/15 JOSE GALVAN 06/29 [employer], [place] ([facility]F light Medicin e Clinic) [employer], [place] ([facility] Medicine [facility]) OUTPATIENT [id number] Notes Entered by: Pepper CHAVEZ 30 Jun 2014 0738 ------- ------- ------- ------- -- ER F/U TODD NOBLES 06/30 Sick at Home/Quarter s [employer]F light Medicin e Clinic) [employer], [place] ([facility]Brandin rctnld [facility] [place] Team) TELE CONSULT [id number] Notes Entered by: ANALI ELI 30 Jun 2014 1528 ------- ------- ------- ------- -- Network Results - ENT 06/15 SUSSY CERVANTES 06/30 [employer]F airchil d [facility] [employer]) [employer], [place] ([facility] Medicine [facility]) OUTPATIENT [id number] MRI F/U JOSE GALVAN 07/03 Released w/o Limitations [employer]F light Medicin e Clinic) [employer], [place] ([facility] Medicine [facility]) TELE CONSULT [id number] Notes Entered by: IRINA SANTOS 05 Jul 2014 0850 ------- ------- ------- ------- -- OTHER IRINA MARX 07/05 Other Not Elsewhere Classified [employer], [place] ([facility]) [employer] [place] [employer] ([facility]) OUTPATIENT [id number] Geovanni parks F/JOSE ARITA 07/25 Released w/o Limitations [employer], [place] ([facility]) [employer], [place] ([facility]) TELE CONSULT [id number] Notes Entered by: GEORGETTE RODRIGUEZ 27 Jul 2014 1427 ------- ------- ------- ------- -- Network Results - Pulmona ry 07/16 JOSE GALVAN 07/27 [employer], [place] ([facility]) [employer] [place] [employer] [place] ([facility]) OUTPATIENT [id number] JOSE Quinn 08/11 Released w/o Limitations [employer] [employer] [place] ([facility]) [employer] [place] ([facility]) TELE CONSULT [id number] Notes Entered by: MARCOS SMYTH 18 Aug 2014 1507 ------- ------- ------- ------- -- Network Results - MRI C-Spine 08/13 ERNA BEE 08/18 [employer], [place] ([facility]) [employer] ([facility]) OUTPATIENT [id number] MRI F/U ERNA BEE 08/23 Released w/o Limitations [employer]F light Medicin e Clinic) [employer] [place] Medicine [facility]) TELE CONSULT [id number] Notes Entered by: HERO ANDRADE 28 Aug 2014 1044 ------- ------- ------- ------- -- Network Results - Pulmona ry Medicin e 08/13 ERNA BEE 08/28 [employer]F light Medicin e Clinic) [employer] [place] Medicine [facility]) TELE CONSULT [id number] Notes Entered by: LAURA RODRIGUEZ 28 Aug 2014 1149 ------- ------- ------- ------- -- Referra kasey F/U ERNA BEE 08/28 [employer]F light Medicin e Clinic) [employer] [place] Medicine [facility]) TELE CONSULT [id number] Notes Entered by: IRINA SANTOS 04 Sep 2014 0926 ------- ------- ------- ------- -- IRINA PEREZ 09/04 Referred for Appointment [employer]F light Medicin e Clinic) [employer] Medicine [facility]) OUTPATIENT [id number] Notes Entered by: Pepper CHAVEZ 06 Sep 2014 0745 ------- ------- ------- ------- -- Cough/c ongesti on SCOUTALEA IBRAHIM 09/06 Released w/o Limitations [employer] [place] [employer]F light Medicin e Clinic) [employer] [place]) OUTPATIENT [id number] Referra l F/U ERNA BEE 09/11 Released w/o Limitations [employer] light Medicin e [facility]) [employer] OUTPATIENT [id number] F/U Lung MICHEAL CAMACHO E 10/09 Released w/o Limitations [employer] light Medicin e [facility]) [employer]) TELE CONSULT [id number] Notes Entered by: HERO ANDRADE 12 Oct 2014 1005 ------- ------- ------- ------- -- Network Results - Pulmona ry Medicin chiara 10/13 ERNA BEE 10/12 [employer] [place] light Medicin e [facility]) [employer]) OUTPATIENT [id number] Notes Entered by: LAURA RODRIGUEZ 17 Oct 2014 0829 ------- ------- ------- ------- -- Fever/S weats/B dougie Ache/Vo benedict DALY KLEIN 10/17 Sick at Home/Quarter s [employer] light Medicin e [facility]) [employer]) TELE CONSULT [id number] Notes Entered by: HERO ANDRADE 09 Nov 2014 0909 ------- ------- ------- ------- -- Network Results - Neurosu rgery 11/13 ERNA BEE 11/09 [employer] light Medicin e [facility]) [employer], [place] ([facility]) OUTPATIENT [id number] FLY PHA HEMAL JULIO M 11/27 Released w/o Limitations [employer] [employer] ([facility]F light Medicin e Clinic) [employer] [place] ([facility]) OUTPATIENT [id number] Ear issues HEMAL JULIO Linda 12/20 Released w/o Limitations [employer] [employer] ([facility]F light Medicin e Clinic) [employer] [place] ([facility]) TELE CONSULT [id number] Notes Entered by: LIZETH WOODS 21 Dec 2014 1041 ------- ------- ------- ------- -- Network Results - Pulmona ry Medicin e 12/13 NORI HEMAL M 12/21 [employer] [place] light Medicin e Clinic) [employer] [place] ([facility]) TELE CONSULT [id number] Notes Entered by: JEANINE LOPEZ 29 Dec 2014 1548 ------- ------- ------- ------- -- Geovanni JULIOSERENAChiara Mckeon 12/29 [employer] [employer] ([facility] light Medicin e Clinic) [employer] [place] ([facility]) OUTPATIENT [id number] F/U LAB/HTN DALY KLEIN E 01/09 Released w/o Limitations [employer] [employer] ([facility] light Medicin e [facility]) [employer] [place] ([facility]) TELE CONSULT [id number] Notes Entered by: HERO ANDRADE 22 Jan 2015 0845 ------- ------- ------- ------- -- Network Results - Sleep Study 01/13 HEMAL JULIO 01/22 [employer] [place] ([facility]F light Medicin e [facility]) [employer] [place] ([facility] Medicine [facility]) OUTPATIENT [id number] Notes Entered by: KASEY PATTON 06 Feb 2015 0757 ------- ------- ------- ------- -- ER F/U Bronchi DALY Ruth 02/06 Released w/o Limitations [employer] PEDRO LUIS Masters ([facility]F light Medicin e [facility]) [employer] PEDRO LUIS Huerta ([facility])([facility] Medicine [facility]) TELE CONSULT [id number] Notes Entered by: LIZETH WOODS 09 Feb 2015 1218 ------- ------- ------- ------- -- Network Results - ER Visit and Dischar ge 02/13 DALY KLEIN 02/09 [employer] PEDRO LUIS Masters ([facility]F light Medicin e Clinic) [employer] PEDRO LUIS Huerta ([facility])([facility] Medicine [facility]) TELE CONSULT [id number] Notes Entered by: LAURA HODGES 02 Mar 2015 1617 ------- ------- ------- ------- -- Network Results - Pulmona ry Medicin e 02/13 HEMAL JULIO 03/02 [employer] P[employer] LUIS Masters ([facility]F light Medicin e Clinic) [employer] PEDRO LUIS Huerta ([facility])(Dis ease Managemen t) TELE CONSULT [id number] Notes Entered by: Kasey SULLIVAN 02 Apr 2015 0944 ------- ------- ------- ------- -- Out process ing KEYLA SULLIVAN 04/02 [employer] Masters ([facility])(Asha Apodaca ent) [employer] [place])([facility]) TELE CONSULT [id number] Notes Entered by: CINDY HURD 08 May 2015 0852 ------- ------- ------- ------- -- Ortho HEMAL Newberry 05/08 [employer] [place]rico [place]) [employer] [place])([facility]) TELE CONSULT [id number] Notes Entered by: CINDY HURD 11 May 2015 1042 ------- ------- ------- ------- -- MED REFILL DALY KLEIN 05/11 [employer] Ramanasaint elizabeth florence vishnu [place]) [employer] [place]) TELE CONSULT [id number] Notes Entered by: DALY KLEIN 18 May 2015 0811 ------- ------- ------- ------- -- DALY Peterson 05/18 [employer] [place] ([facility]) [employer] [place])([facility]) TELE CONSULT [id number] Notes Entered by: CINDY HURD 25 Jun 2015 1159 ------- ------- ------- ------- -- Med refill DALY KLEIN 06/25 [employer] [place] ([facility]) [employer] [place] ([facility]) TELE CONSULT [id number] Notes Entered by: ANALI ELI 23 Jul 2015 1518 ------- ------- ------- ------- -- Network Results - Audiolo gy 01/13 JULIOHEMAL CARRASCO Linda 07/23 [employer] [place] ([facility] Medicin e [facility]) [facility] Medical Group(Pul monary [facility]) TELE CONSULT [id number] Notes Entered by: JEFFERY ALONZO 21 Oct 2016 1440 ------- ------- ------- ------- -- TDRL Nov w/ NILSON Leblanc 10/21 Referred for Appointment [facility](P ulmonar y MTF) [facility](Pul [facility] Procedure s) OUTPATIENT [id number] FULL PFTs, Asthma, TDRL appt Oct W/ Jose sheridan @ 1105 JOSE BRIGGS 11/26 Released w/o Limitations [facility](P ulmonar y Procedu res) [facility](Pul monary [facility]) OUTPATIENT [id number] TDRL, Asthma BRIGGS JOSE A 11/27 Released w/o Limitations [facility](P ulmonar y [facility]) [place] [facility] Outpatient Encounter [id number] QIANA WHEELER CIA 07/15 [place] [facility] [place] [facility] Outpatient Encounter [id number] MILE APARICIO 07/15 [place] [facility] [place] [facility] Outpatient Encounter [id number] BELEM RANDOLPH 08/13 [place] [facility] Outpatient Encounter [id number] 08/13 [facility] NICOLA Sheridan [place] [facility] Outpatient Encounter [id number] AMY JAMA 09/27 [place] [facility] Out[facility] Encounter [id number] Diagnos is: ICD-10- CM Z00.00 Encntr for general adult medical exam w/o abnorma l finding s YARON CHADWICK 10/28 [facility] [place] [facility] Outpatient Encounter [id number] 11/09 [place] [facility] Outpatient Encounter [id number] 11/11 [facility] Encounter [id number] 12/08 [facility] Encounter [id number] 12/[address] [facility] Outpatient Encounter [id number] Pepper KAUR 12/20 [facility] Outpatient Encounter [id number] 12/27 [facility] [facility] Encounter [id number] 12/31 [facility] [place] [facility] OFF/OP EST SEPTEMBER X REQ PHY/QHP [id number] Diagnos is: ICD-10- CM G47.33 Obstruc tive sleep apnea (adult) (pediat johann) YARON ELLIS 01/[address] [facility] Outpatient Encounter [id number] 01/04 [facility] Out[facility] Encounter [id number] 01/06 [facility] Outpatient Encounter [id number] 02/02 [facility] [place] [facility] Outpatient Encounter [id number] Diagnos is: ICD-10- CM G47.33 Obstruc tive sleep apnea (adult) (pediat johann) YARON ELLIS 02/03 [place] [facility] Outpatient Encounter [id number] 02/14 [facility] [place] [facility] Outpatient Encounter [id number] 03/24 [place] [facility] [place] [facility] Outpatient Encounter [id number] 05/19 [place] [facility] Outpatient Encounter [id number] 05/23 [facility] [place] [facility] Outpatient Encounter [id number] 05/23 [place] [facility] Outpatient Encounter [id number] EVAN CONTRERAS A 05/26 [facility] [place] [facility] Outpatient Encounter [id number] 06/23 [place] [facility] [place] [facility] Outpatient Encounter [id number] 07/20 [place] [facility] Outpatient Encounter [id number] 08/04 [facility] Outpatient Encounter [id number] YARON CHADWICK R 08/23 [facility] OFFICE O/P EST MOD 30 MIN [id number] Diagnos is: ICD-10- CM F10.180 Alcohol abuse with alcohol -induce d anxiety disorde r YARON CHADWICK R 08/23 [facility] Outpatient Encounter [id number] 09/08 [facility] Outpatient Encounter [id number] 09/09 [facility] Outpatient Encounter [id number] 10/06 [facility] Outpatient Encounter [id number] 10/06 [facility] [place] [facility] Outpatient Encounter [id number] 10/12 [place] [facility] [place] [facility] Outpatient Encounter [id number] 10/12 [place] [facility] [place] [facility] Outpatient Encounter [id number] 10/20 [place] [facility] [place] [facility] Outpatient Encounter [id number] 11/23 [place] [facility] Outpatient Encounter [id number] 12/01 [facility] [place] [facility] Outpatient Encounter [id number] 12/05 [place] [facility] [place] [facility] Outpatient Encounter [id number] 12/14 [place] [facility] [place] [facility] Outpatient Encounter [id number] 12/14 [place] [facility] OFFICE O/P EST LOW 20 MIN [id number] Diagnos is: ICD-10- CM J06.9 Acute upper respira tory infecti on, unspeci fied FARRUKH,YARON THERINE R 12/15 [facility] Procedures Combined list of: 1) Procedures from Department of [facility] Affairs facilities going back up to thelast 18 months, not all [place] non-surgical procedures are included; 2) All procedures from the Department of Defense facilities. Procedure Procedure Type Code Date Perfomer Comments Sourc e Pulmonary Function Carbon Monoxide Diffusion % (DLCO) Pulmonary Function Carbon Monoxide Diffusion % (DLCO) 79496 017 HILARIO ESPINOSA [facility] Extensive Color Vision Testing Extensive Color Vision Testing 84468 015 HEMAL JULIO [facility] Threshold Audiogram (Pure Tone) Threshold Audiogram (Pure Tone) 88858 015 HEMAL JULIO [facility] Screening Test Of Visual Acuity, Quantitative, Bilateral Screening Test Of Visual Acuity, Quantitative, Bilateral 56903 015 HEMAL JULIO [facility] Supervised Injection Intravenous Supervised Injection Intravenous 60197 015 DALY KLEIN Promethazine 25mg IV added to 1L NS for relief of nausea [facility] IV Infusion For Hydration 31 Minutes To 1 Hour IV Infusion For Hydration 31 Minutes To 1 Hour 28536 015 DALY KLEIN ECG Interpretation And Report Only ECG Interpretation And Report Only 00404 015 JOSE GALVAN [facility] Spirometry Pre-bronchodilator Spirometry Pre-bronchodilator 12128 015 JOSE GALVAN Psychiatric Therapy Environmental Intervention Psychiatric Therapy Environmental Intervention 38214 014 ETHAN ISLAS [facility] Threshold Audiogram (Pure Tone) Threshold Audiogram (Pure Tone) 81776 014 ERNA BEE [facility] ECG 12-Lead With Interpretation And Report ECG 12-Lead With Interpretation And Report 22068 ERNA BEE Extensive Color Vision Testing Extensive Color Vision Testing 29572 ERNA BEE Visual Function Screening Visual Function Screening 41510 ERNA BEE Preventive Medicine Results Documented/Reviewed Chest X-Ray Preventive Medicine Results Documented/Reviewed Chest X-Ray 3006F ERNA BEE Fundus Photography Fundus Photography 91810 KATY TURNER [facility] Determination Of Refractive State Determination Of Refractive State 10294 KATY TURNER [facility] Ophthalmological Prior Patient Start Comprehensive Care Ophthalmological Prior Patient Start Comprehensive Care 66720 KATY TURNER [facility] Psychiatric Evaluation Review of Records and Reports Psychiatric Evaluation Review of Records and Reports 50291 SAUL LYONS [facility] Extensive Color Vision Testing Extensive Color Vision Testing 43881 014 JAIME BROWN [facility] Threshold Audiogram (Pure Tone) Threshold Audiogram (Pure Tone) 98891 014 JAIME BROWN [facility] Screening Test Of Visual Acuity, Quantitative, Bilateral Screening Test Of Visual Acuity, Quantitative, Bilateral 77628 JAIME BROWN [facility] Psychologic Testing And Report Administered By Computer Psychologic Testing And Report Administered By Computer 63616 013 MOISÉS BELLE [facility] Psychiatric Evaluation Comprehensive Examination Psychiatric Evaluation Comprehensive Examination 43921 013 MOISÉS BELLE Psychologic Testing And Report Administered By Computer Psychologic Testing And Report Administered By Computer 63201 013 MOISÉS BELLE Psychiatric Evaluation Comprehensive Examination Psychiatric Evaluation Comprehensive Examination 48427 MOISÉS BELLE [facility] Extensive Color Vision Testing Extensive Color Vision Testing 34747 012 SHAW, LIEN Q [facility] Screening Test Of Visual Acuity, Quantitative, Bilateral Screening Test Of Visual Acuity, Quantitative, Bilateral 93262 012 SHAW, LIEN Q [facility] Threshold Audiogram (Pure Tone) Threshold Audiogram (Pure Tone) 32498 JOHN SHAW Melinda Fundus Photography Fundus Photography 14021 15/07 KATY TURNER Ophthalmological Prior Patient Start Comprehensive Care Ophthalmological Prior Patient Start Comprehensive Care 97729 KATY TURNER Determination Of Refractive State Determination Of Refractive State 27333 KATY TURNER Threshold Audiogram (Pure Tone) Threshold Audiogram (Pure Tone) 93662 AMY DELGADO Visual Function Screening Visual Function Screening 63245 AMY DELGADO Destruction Of Benign Lesion By Any Method AMY DELGADO Destruction Of Flat Warts By Cryosurgery Up To 14 Lesions CARSON CABELLO Destruct Of Flat Warts By Cryosurgery 15 Or More Lesions FILI KOROMA Liquid nitrogen wart treatment bilateral surface of hands multiple warts 16 R hand 12 L hand; order veritified verbally with provider Dr. Chao pt advised of risks and benefits of liquid nitrogen therapy and process of procedure. Pt expressed desire to have both hands treated today diffuse multiple clusters of flat warts on palmar surface of both hands and fingers. Liquid nitrogen applied to each wart for 2-3 seconds pt tolerated well three warts on each hand recieved a second spray treatment. Advised of after care instructions possibility of blisters will f/u in 1 week for repeated treatment f/u as needed. [facility] Determination Of Refractive State Determination Of Refractive State 39239 010 KATY TURNER Ophthalmological New Patient Start Comprehensive Care Ophthalmological New Patient Start Comprehensive Care 82466 KATY TURNER Psychiatric Evaluation Comprehensive Examination Psychiatric Evaluation Comprehensive Examination 91046 RANI MOORE Psychologic Testing And Report Administered By Camera Mechanic Psychologic Testing And Report Administered By Camera Mechanic 22709 RANI CAMPOS Psychologic Testing And Report Administered By Computer Psychologic Testing And Report Administered By Computer 23610 RANI CAMPOS DIFFUSING CAPACITY (EG, CARBON MONOXIDE, MEMBRANE) (LIST SEPARATELY IN ADDITION TO CODE FOR PRIMARY PROCEDURE) [facility] COLOR VISION EXAMINATION, EXTENDED, EG, ANOMALOSCOPE OR EQUIVALENT [facility] THERAPEUTIC, PROPHYLACTIC, OR DIAGNOSTIC INJECTION (SPECIFY SUBSTANCE OR DRUG); INTRAVENOUS PUSH, SINGLE OR INITIAL SUBSTANCE/DRUG [facility] ELECTROCARDIOGRAM, ROUTINE ECG WITH AT LEAST 12 LEADS; INTERPRETATION AND REPORT ONLY [facility] SPIROMETRY, INCLUDING GRAPHIC RECORD, TOTAL AND TIMED VITAL CAPACITY, EXPIRATORY FLOW RATE MEASUREMENT(S), WITH OR WITHOUT MAXIMAL VOLUNTARY VENTILATION [facility] ENVIRONMENTAL INTERVENTION FOR MEDICAL MGMT PURPOSES ON A PSYCHIATRIC PATIENT'S BEHALF WITH AGENCIES, EMPLOYERS, OR INSTITUTIONS [facility] PURE TONE AUDIOMETRY (THRESHOLD); AIR ONLY [facility] FUNDUS PHOTOGRAPHY WITH INTERPRETATION AND REPORT [facility] PSYCHIATRIC EVALUATION OF HOSPITAL RECORDS, OTHER PSYCHIATRIC REPORTS, PSYCHOMETRIC AND/OR PROJECTIVE TESTS, AND OTHER ACCUMULATED DATA FOR MEDICALDIAGNOSTIC PURPOSES [facility] COLOR VISION EXAMINATION, EXTENDED, EG, ANOMALOSCOPE OR EQUIVALENT [facility] PSYCHOTHERAPY, 60 MINUTES WITH PATIENT DoD PSYCHOLOGICAL TSTING (INCL PSYCHODIAG ASSESSMNT, EMOTITY, INTELLECTUAL ABILITIES, PERSONALITY &PSYCHOPATHOLOGY, EG, MMPI), ADMINISTERED COMPUTER, W QUALIFIED HEALTH IT ADMIN INTERPRET &RPT DoD PSYCHOLOGICAL TSTING (INCL PSYCHODIAG ASSESSMNT, EMOTITY, INTELLECTUAL ABILITIES, PERSONALITY &PSYCHOPATHOLOGY, EG, MMPI), ADMINISTERED COMPUTER, W QUALIFIED HEALTH IT ADMIN INTERPRET &RPT [facility] COLOR VISION EXAMINATION, EXTENDED, EG, ANOMALOSCOPE OR EQUIVALENT [facility] FUNDUS PHOTOGRAPHY WITH INTERPRETATION AND REPORT [facility] VIS FUNCT SCREEN,AUTOMAT/SEMI- AUTOMAT BILAT QUANT DETERM VISUAL ACUITY,OCULAR ALIGN,COLOR VISION,PSEUDOISOCHRO MAT PLATES,& FIELD VIS (MAY INC ALL/SOME SCRN DETERM FOR CONTRAST SENSITIV,VIS UND GLARE) DoD DESTRUCTION (EG, LASER SURGERY, ELECTROSURGERY, CRYOSURGERY, CHEMOSURGERY, SURGICAL CURETTEMENT), OF BENIGN LESIONS OTHER THAN SKIN TAGS OR CUTANEOUS VASCULAR PROLIFERATIVE LESIONS; UP TO 14 LESIONS DoD DESTRUCTION (EG, LASER SURGERY, ELECTROSURGERY, CRYOSURGERY, CHEMOSURGERY, SURGICAL CURETTEMENT), OF BENIGN LESIONS OTHER THAN SKIN TAGS OR CUTANEOUS VASCULAR PROLIFERATIVE LESIONS; UP TO 14 LESIONS 011 DoD DESTRUCTION (EG,LASER SURGERY,ELECTROSURGE RY,CRYOSURGERY,CHEMO SURGERY,SURGICAL CURETTEMENT),OF BENIGN LESIONS OTHER THAN SKIN TAGS OR CUTANEOUS VASCULAR PROLIFERATIVE LESIONS; 15 OR MORE LESIONS 011 DoD VIS FUNCT SCREEN,AUTOMAT/SEMI- AUTOMAT BILAT QUANT DETERM VISUAL ACUITY,OCULAR ALIGN,COLOR VISION,PSEUDOISOCHRO MAT PLATES,& FIELD VIS ([employer] ALL/SOME SCRN DETERM FOR CONTRAST SENSITIV,VIS UND GLARE) 010 [facility] OPHTHALMOLOGICAL SERVICES: MEDICAL EXAMINATION AND EVALUATION WITH INITIATION OF DIAGNOSTIC AND TREATMENT PROGRAM; COMPREHENSIVE, NEW PATIENT, 1 OR MORE VISITS 010 [facility] COLLECTION OF VENOUS BLOOD BY VENIPUNCTURE 012 [facility] Social History Combined list of available smoking, tobacco, and other social history from Department of Defense and Veterans Affairs facilities. Social History Type Response Date Comment Sourc e Tobacco smoking status NHIS VA-TOBACCO USER EVERY DAY 10/29/2023 [facility] History of tobacco use VA-TOBACCO DOESNT USE WI 30 MIN WAKEUP 10/29/2023 [facility] History of tobacco use VA-TOBACCO NEVER USED 10/30/2022 [facility] History of tobacco use VA-TOBACCO NEVER USED 02/01/2021 [facility] History of tobacco use VA-TOBACCO NEVER USED 03/29/2019 [facility] History of tobacco use VA-TOBACCO NEVER USED 04/06/2018 [facility] History of tobacco use LIFETIME NON-USER OF TOBACCO 11/01/2015 [facility] This section is an empty social history section. [facility] Plan of Care List of future care activities from Department of Veterans Affairs facilities. Additional future care activities may be listed in the Assessment and Plan section. Date/Time Care Activity Care Activity Detail Facili ty 01/02/2025 AMBULATORY - MEDICINE AMBULATORY - MEDICI NE [facility]
--- OUTSIDE RECORDS SUMMARY | 2024-12-25 08:18 | XMS_ITS | Clinical Summary ---
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 Active albuterol (PROVENTIL,MARY KORY) 2.5 mg/0.5 mL Solution for Nebulization Take 2.5 mg by inhalation one time only. Active hydroCHLOROthiaz lesley 25 mg tablet Take 25 mg by mouth daily. Active gabapentin (NEURONTIN) 100 mg capsule Take 100 mg by mouth 3 times daily. Active MELOXICAM ORAL Take by mouth. Active METHOCARBAMOL ORAL Take by mouth. Activ e SUMAtriptan (Imitrex) 100 mg tablet Take 1 Tablet (100 mg) by mouth see administration instructions. may repeat in 2 hours; max dose 200mg in 24 hours 9 Tablet 11 02/22/20 21 Active topiramate (TOPAMAX) 50 mg tablet Take 1 Tablet (50 mg) by mouth daily in the morning. And 2 pill at night for a week, then 2 pill bid 120 Tablet 11 02/22/20 21 Active Active Problems No known active problems Family History Medical History Relation Name Comments Healthy Brother Healthy Daughter Healthy Father Healthy Mother Healthy Sister Healthy Son Relation Name Status Comments Brother Alive Daughter Alive Father Alive Mother Alive Sister Alive Son Alive Social History Tobacco Use Types Packs/Day Years Used Date Smoking Tobacco: Never Smokeless Tobacco: Never Tobacco Cessation:Counseling Given: Yes Alcohol Use Standard Drinks/Week Comments Yes 0 (1 standard drink = 0.6 oz pur e alcohol) occasionally Sex and Gender Information Value Date Recorded Sex Assigned at Not on file Legal Sex Male 9:51 AM CDT Gender Identity Not on file Sexual Orientation Not on file Last Filed Vital Signs Vital Sign Reading Time Taken Comments Blood Pressure 145/90 02/21/2021 10:28 AM CDT Pulse - - Temperature - - Respiratory Rate - - Oxygen Saturation - - Inhaled Oxygen Concentration - - Weight 95.3 kg (210 lb) 02/21/2021 10:28 AM CDT Height 175.3 cm (5' 9 ) 02/21/2021 10:28 AM CDT Body Mass Index 31.01 02/21/2021 10:28 AM CDT Plan of Treatment Health Maintenance Due Date Last Done Comments HPV VACCINES (1 - Male 3-dose series) 11/23/1999 DTAP/TDAP/TD VACCINES (1 - Tdap) 11/23/2003 HEPATITIS B VACCINES (1 of 3 - 19+ 3-dose series) 10/31 INFLUENZA VACCINE (#1) 2024 Insurance * Guarantor: OLD [address] [employer] [facility] Account Type Relation to Patient Date of Phone Billing Address Corporate Other DEFAULT ADDRESS [address] [employer]
--- OUTSIDE RECORDS SUMMARY | 2024-12-25 08:19 | XMS_ITS | Patient Health Record ---
Author Organization [facility] Address [address] [place] [address] Care Team Providers Care Butter Melter Name Role Phone [facility] Pattie MILLER Primary Care Provid er Unavailable Bunny Dillard Unavailable [phone] Migration, Provider Unavailable Unavailable Jolene Stephens Unavailable [phone] Results Component Value Reference Range Flag Notes Prothrombin Time 05239 (Not yet reviewed by provider) Interpretation: Performing Lab: Notes/Report: Diagnosis Description: Hemorrhagic condition, unspecified Diagnosis Description: Encounter for other preprocedural examination Diagnosis Description: Other intervertebral disc displacement, lumbar region Diagnosis Description: Lumbago with sciatica, right side Diagnosis Description: Lumbago with sciatica, left side Diagnosis Description: Other spondylosis with radiculopathy, lumbosacral region Diagnosis Description: Other intervertebral disc degeneration, lumbar region with discogenic back pain only ProTime 10.9 9.1-11.9 SEC Normal Range : 9.1-11.9 INR 1.03 .90-1.20 Therapeutic Range: 2.0-3.0 Therapaeutic Range for heart valve replacement: 2.5-3.50 ABORh 74757, 99265 (Not yet reviewed by provider) Interpretation: Performing Lab: Notes/Report: Diagnosis Description: Hemorrhagic condition, unspecified Diagnosis Description: Encounter for other preprocedural examination Diagnosis Description: Other intervertebral disc displacement, lumbar region Diagnosis Description: Lumbago with sciatica, right side Diagnosis Description: Lumbago with sciatica, left side Diagnosis Description: Other spondylosis with radiculopathy, lumbosacral region Diagnosis Description: Other intervertebral disc degeneration, lumbar region with discogenic back pain only ABO/Rh Interp O POS Unknown Antibody Screen 96314 (Not y et reviewed by provider) Interpretation: Performing Lab: Notes/Report: Diagnosis Description: Hemorrhagic condition, unspecified Diagnosis Description: Encounter for other preprocedural examination Diagnosis Description: Other intervertebral disc displacement, lumbar region Diagnosis Description: Lumbago with sciatica, right side Diagnosis Description: Lumbago with sciatica, left side Diagnosis Description: Other spondylosis with radiculopathy, lumbosacral region Diagnosis Description: Other intervertebral disc degeneration, lumbar region with discogenic back pain only Blood Bank ID [id number] Unknown ABSC Interp Negative Basic Metabolic Panel (BMP) 84704 (Not yet reviewed by provider) Interpretation: Performing Lab: Notes/Report: Diagnosis Description: Hemorrhagic condition, unspecified Diagnosis Description: Encounter for other preprocedural examination Diagnosis Description: Other intervertebral disc displacement, lumbar region Diagnosis Description: Lumbago with sciatica, right side Diagnosis Description: Lumbago with sciatica, left side Diagnosis Description: Other spondylosis with radiculopathy, lumbosacral region Diagnosis Description: Other intervertebral disc degeneration, lumbar region with discogenic back pain only Sodium 139 136-145 MMOL/L Potassium 3.6 3.5-5.1 MMOL/L Chloride 101 98-107 MMOL/L CO2 28.7 20.0-31.0 MMOL/L Glucose Serum 134 71-110 MG/DL HI Testing p erformed at [facility], [address] [place] [address] [place] [address]. CLIA ID#: [id number] BUN 20 7-21 MG/DL Creat .85 .57-1.17 MG/DL O-dzigvi-u-benzoquin one imine (NAPQI) is a metabolite of acetaminophen, NAPQI concentrations of apparoximately 10 mg/L correlation to toxic levels of acetaminophen demonstrates a greater than or equil to 10% change in results. NAPQI concentrations greater than this may lead to falsely depressed results for patient samples. Use of this assay is not recommended for patients undergoing treatment with phenindione, due to the potential for falsely depressed results. GFR 112.8 NA Calculation pe rformed from GFR calculator provided by the [employer]. Glomerular Filtration rate(GRF) is the best overall index of kidney function. Normal GFR varies according to age,sex, body size, and declines with age. The [employer] recommends using the CKD-EPI Creatinine Equation(202) to estimate GFR. Anion Gap 13 5-15 BUN/Creat Ratio 23.5 12.0-20.0 % HI Calcium 9.7 8.7-10.4 MG/DL Osmo Serum,Calculated 293 280-300 MOSM/KG CBC w\ Auto Diff 72473 (Not yet reviewed by provider) Interpretation: Performing Lab: Notes/Report: Diagnosis Description: Hemorrhagic condition, unspecified Diagnosis Description: Encounter for other preprocedural examination Diagnosis Description: Other intervertebral disc displacement, lumbar region Diagnosis Description: Lumbago with sciatica, right side Diagnosis Description: Lumbago with sciatica, left side Diagnosis Description: Other spondylosis with radiculopathy, lumbosacral region Diagnosis Description: Other intervertebral disc degeneration, lumbar region with discogenic back pain only WBC 6.1 4.5-11.0 X10'3 RBC 4.76 4.50-5.90 X10'6 Hgb 14.3 13.5-17.5 G/DL Hct 41.4 41.0-53.0 % MCV 87.0 80.0-100.0 FL MCH 30.0 27.0-31.0 PG MCHC 34.5 31.0-37.0 G/DL Platelet 253 150-400 X10'3 RDW-SD 38.9 35.0-49.0 FL RDW-CV 12.1 12.2-15.6 % LOW MPV 11.0 9.2-12.0 FL Neutro Auto% 52.4 40.0-70.0 % Lymph Auto% 37.5 22.0-44.0 % Lane Auto% 8.1 3.0-7.0 % HI Eos Auto% 1.6 2.0-4.0 % LOW Baso Auto% 0.2 0.0-1.0 % Imm Gran% .2 .0-.4 % Neutro Abs 3.22 .80-7.70 Absolute Neutrophil Count 3220 NA Lymph Abs 2.30 .10-4.10 Lane Abs .50 .20-1.00 Eos Abs .10 .00-.40 Baso Abs .01 .00-.20 Imm Gran Abs .01 .00-.10 NRBC# .00 .00-.20 NRBC% .00 .00-.20 /100 intact WBC's Partial Thromboplastin Time 97756 (Not yet reviewed by provider) Interpretation: Performing Lab: Notes/Report: Diagnosis Description: Hemorrhagic condition, unspecified Diagnosis Description: Encounter for other preprocedural examination Diagnosis Description: Other intervertebral disc displacement, lumbar region Diagnosis Description: Lumbago with sciatica, right side Diagnosis Description: Lumbago with sciatica, left side Diagnosis Description: Other spondylosis with radiculopathy, lumbosacral region Diagnosis Description: Other intervertebral disc degeneration, lumbar region with discogenic back pain only PTT 25.5 22.6-31.8 SEC Therapeutic Range: 60-100. Critical Value Starting at > 100. Chest PA/Lat-61667 (Not yet reviewed by provider) Interpretation: Performing Lab: Notes/Report: [id number]&org=iSite CT L-Spine w/o Contrast Kaitlyn r Protocol-13349 (Not yet reviewed by provider) Interpretation: Performing Lab: Notes/Report: [id number]=[id number]&org=iSite CT L-Spine w/o Contrast Kaitlyn r Protocol-16973 (Not yet reviewed by provider) Interpretation: Performing Lab: Notes/Report: See Below For Report CT L-Spine w/o Contrast Mazor Protocol CT L-spine Mazor Protocol. Surgery 10/18/2024 and PST 10/11/2024. Please schedule for same day as PST. Thank you. Read See Below For Report zzzMRI Outside CD (Not yet r eviewed by provider) Interpretation: Performing Lab: Notes/Report: faf=[id number]&org=iSite XR Outside CD (Not yet revie wed by provider) Interpretation: Performing Lab: Notes/Report: hwz=[id number]&org=iSite zzzCT Outside CD (Not yet re viewed by provider) Interpretation: Performing Lab: Notes/Report: [id number]&org=iSite IH Lumbosacral Spine AP/Lat - 72843 (Not yet reviewed by provider) Interpretation: Performing Lab: Notes/Report: See Below For Report Lumbosacral Spine AP/Lat zzzFluoro >1h4 (Not yet revi ewed by provider) Interpretation: Performing Lab: Notes/Report: Fluoroscopy only. No dictation for this exam and accession number. FINAL REPORT Read Fluoroscopy only. No dictation for this exam and accession number. Schedule Confirmation (Not y et reviewed by provider) Interpretation: Performing Lab: Notes/Report: CT L-Spine w/o Contrast Mazor Protocol Lumbosacral Spine AP/Lat-721 00 Reviewed date:12/07/2024 08:26:20 AM Interpretation: Performing Lab: Notes/Report: [id number]&org=iSite IH Lumbosacral Spine AP/Lat - 77324 (Not yet reviewed by provider) Interpretation: Performing Lab: Notes/Report: muf=[id number]&org=iSite Schedule Confirmation (Not y et reviewed by provider) Interpretation: Performing Lab: Notes/Report: CT L-Spine w/o Contrast Mazor Protocol Chest PA/Lat-57892 (Not yet reviewed by provider) Interpretation: Performing Lab: Notes/Report: See Below For Report Chest PA/Lat Diagnosis Description: Encounter for other preprocedural examination Read See Below For Report BB ABORH-03084,54966 (Not ye t reviewed by provider) Interpretation: Performing Lab: Notes/Report: BB ABORh Interp O POS Unknown Reason For Referral Reason segmental and somati c dysfunction of lumbar region Diagnosis 1 Segmental and somati c dysfunction of lumbar region (M99.03) Referring Provider First Name Pattie [facility]erring Provider [facility] Referring Provider Speciality Nurse Prac titioner Referred Organization [facility] [place] Referred Provider Bunny Dillard Referred Address [address],[place],[address], Referral Priority Routine Medications Medication SIG (Take, Route, Frequency, Duration) Notes Start Date End Date Status Meloxicam *Pick strength-form from [employer] for eRX* Active Methocarbamol 750 MG Tablet 1 tablet as needed Orally TID; Duration: 30 days 12/06/2024 04/04/2025 Active Methocarbamol 750 MG Tablet 1 tablet Orally every 4 hrs; Duration: 15 days for muscle spasms or pain 10/26/2024 01/24/2025 Active Amitriptyline HCl 25 MG Tablet 1 tablet at bedtime Orally Once a day Active Temazepam *Pick strength-form from [employer] for eRX* Active Cymbalta 60 MG Capsule Delayed Release Particles 1 capsule Orally Once a day; Duration: 30 day(s) for chronic back pain 12/16/2021 Active Robaxin-750 750 MG Tablet 1 tablet Orally every 4 hrs; Duration: 30 day(s) for muscle spasms or pain 11/07/2019 Active Metoprolol Succinate *[facility]* Active Cymbalta 60 MG Capsule Delayed Release Particles 1 capsule Orally Once a day; Duration: 30 day(s) for chronic pain 01/16/2022 Active SUMAtriptan *Pick strength-form from [employer] for eRX* Active duloxetine *[facility] for eRx and Interaction Alerts* Active aMILoride-hydroCHLORO thiazide *Pick strength-form from [employer] for eRX* Active Melatonin *Pick strength-form from [employer] for eRX* Active Social History Tobacco Use: Social History Observation Description Date Details (start date - stop date) Never Smoker NA - NA Social History Depression Screening Social Info Question Answer Notes PHQ-9 Little interest or pleasure in doing thin gs Not at all Feeling down, depressed, or hopeless Not at all Trouble falling or staying asleep, or sleeping t oo much Several days Feeling tired or having little energy Several da ys Poor appetite or overeating Not at all Feeling bad about yourself, or that you are a failure, or have let yourself or your family down Not at all Trouble concentrating on thi ngs, such as reading the newspaper or watching television Not at all Moving or speaking so slowly that other people could have noticed. Or the opposite ? being so fidgety or restless that you have been moving around a lot more than usual Not at all Thoughts that you would be b sandy off , or of hurting yourself in some way Not at all Total Score 2 Interpretation Minimal Depression Drugs/Alcohol: Social Info Question Answer Notes Alcohol Screen (Audit-C) Did you have a drink containing alcohol in the past year? Yes How often did you have a drink containing alcohol in the past year? Monthly or less (1 point) How many drinks did you have on a typical day when you were drinking in the past year? 3 or 4 drinks (1 point) How often did you have 6 or more drinks on one occasion in the past year? Monthly (2 points) Points 4 Interpretation Positive Drugs Have you used drugs other than those for medical reasons in the past 12 months? No Tobacco Use: Social Info Question Answer Notes Screening Not Performed: Do you smoke? No xTobacco Use/Smoking Are you a nonsmoker Tobacco use other than smoking: Are you an other tobacco user? No Additional Details Category Social Info Options Details zzMigrated Social History Migrated Social History Smoking Status:Never smoked tobacco (finding) Problems Problem Type SNOMED Code ICD Code Onset Dates Problem Status W/U Status Risk Notes Problem Chronic pain (19125706) Other chronic pain (G89.29) Active confirmed Problem Lumbosacral spondylosis without myelopathy (19103710) Other spondylosis with radiculopathy, lumbosacral region (M47.27) Active confirmed Problem Lumbosacral radiculopathy (0411872) Intervertebral disc disorders with radiculopathy, lumbosacral region (M51.17) Active confirmed Problem Sciatica (84118998) Lumbago with sciatica, right side (M54.41) Active confirmed Problem Sciatica (17530745) Lumbago with sciatica, left side (M54.42) Active confirmed Problem Anesthesia of skin (399139401) Anesthesia of skin (R20.0) Active confirmed Problem Bleeding tendency (02647837) Bleeding tendency (D69.9) Active confirmed Problem Lumbosacral stenosis (658159679) Foraminal stenosis of lumbosacral region (M48.07) Active confirmed Problem Degeneration of lumbar intervertebral disc (79996125) Degenerative disc disease, lumbar (M51.36) Active confirmed Problem Carpal tunnel syndrome (76656965) Carpal tunnel syndrome on both sides (G56.03) Active confirmed Problem Degeneration of lumbar intervertebral disc (48596730) Disc degeneration, lumbar (M51.36) Active confirmed Problem Displacement of lumbar intervertebral disc without myelopathy (70665919) Disc displacement, lumbar (M51.26) Active confirmed Problem Degeneration of intervertebral disc of lumbosacral region with discogenic back pain and lower extremity pain (M51.372) Active confirmed Vital Signs Heart Rate 72 /min 12/06/2024 Temperature 97.8 degrees Fahrenheit 12/06/2024 Respiratory Rate 19 /min 12/06/2024 Blood pressure diastolic 82 mm Hg 12/06/2024 Oximetry 96 % 12/06/2024 Weight-kg 104.33 kg 12/06/2024 Height 69 in 12/06/2024 Blood pressure systolic 140 mm Hg 12/06/2024 Weight 230 lbs 12/06/2024 BMI 33.96 kg/m2 12/06/2024 Encounters Encounter Location Date Provider Diagnosis [facility] [address] [place] [address] 10/06/2024 Bunny Dillard Intervertebral disc disorders with radiculopathy, lumbosacral region M51.17 ; Carpal tunnel syndrome on both sides G56.03 ; Degeneration of intervertebral disc of lumbosacral region with discogenic back pain and lower extremity pain M51.372 ; Other chronic pain G89.29 ; Lumbago with sciatica, right side M54.41 and Lumbago with sciatica, left side M54.42 [facility] [address] [place] [address] 11/01/2024 Jolene Stephens Disc displacement, lumbar M51.26 ; Lumbago with sciatica, right side M54.41 ; Lumbago with sciatica, left side M54.42 ; Other spondylosis with radiculopathy, lumbosacral region M47.27 ; Degeneration of intervertebral disc of lumbar region with discogenic back pain M51.360 ; Arthrodesis status Z98.1 and Postop check Z09 [facility] [address] [place] [address] 12/06/2024 Jolene Stephens Disc displacement, lumbar M51.26 ; Other spondylosis with radiculopathy, lumbosacral region M47.27 ; Degeneration of intervertebral disc of lumbar region with discogenic back pain M51.360 ; Arthrodesis status Z98.1 and Postop check Z09 [facility] [address] [place] [address] 10/11/2024 Bunny Dillard [facility] [address] [place] [address] 10/07/2024 Bunny Dillard Bleeding tendency D69.9 ; Pre-op testing Z01.818 ; Disc displacement, lumbar M51.26 ; Lumbago with sciatica, right side M54.41 ; Lumbago with sciatica, left side M54.42 ; Other spondylosis with radiculopathy, lumbosacral region M47.27 and Degeneration of intervertebral disc of lumbar region with discogenic back pain M51.360 [facility] [place] [address] [place] [address] 10/06/2024 Bunny Dillard Migrated_Facility 0 0 03/27/2024 Provider Migration Migrated_Facility 0 0 03/26/2024 Provider Migration [facility] [place] [address] [place] [address] 10/26/2024 Bunny Dillard Assessments Encounter Date Diagnosis (ICD Code) Assessment Notes Treatment Notes Treatment Clinical Notes Section Notes 10/06/2024 Intervertebral disc disorders with radiculopathy, lumbosacral region (ICD-10 - M51.17) Patient's symptoms and clinical findings reviewed, imaging studies shown to patient discussed. All questions and concerns addressed. Patient has failed to improve low back hip and leg pain with extensive medical and physical measures, I have offered minimally invasive lumbar fusion for his condition. All questions and concerns addressed, patient would like to proceed with the surgery that has been discussed. 10/06/2024 Carpal tunnel syndrome on both sides (ICD-10 - G56.03) 10/07/2024 Bleeding tendency (ICD-10 - D69.9) 11/01/2024 Lumbago with sciatica, right side (ICD-10 - M54.41) 11/01/2024 Disc displacement, lumbar (ICD-10 - M51.26) Patient symptoms and clinical findings reviewed, response to surgical treatment discussed. All questions and concerns addressed. Incision healing well, no signs of infection-May use heat/ice on incision to help with healing. Okay to lift up to 15 pounds. May begin driving. No soaking incision. Denies need for refills. F/u in 4-6 weeks w/ xray prior, sooner if needed. 12/06/2024 Disc displacement, lumbar (ICD-10 - M51.26) Patient symptoms and clinical findings reviewed, response to surgical treatment discussed. All questions and concerns addressed. Incision healing well w/o signs of infection Okay to lift up to 30 pounds. May soak incision. Lumbosacral xray reviewed with stable hardware. Refill pain medication and muscle relaxer today. F/u in 3 months w/ xray prior, sooner if needed. 12/06/2024 Other spondylosis with radiculopathy, lumbosacral region (ICD-10 - M47.27) 10/07/2024 Pre-op testing (ICD-10 - Z01.818) 11/01/2024 Lumbago with sciatica, left side (ICD-10 - M54.42) 10/06/2024 Degeneration of intervertebral disc of lumbosacral region with discogenic back pain and lower extremity pain (ICD-10 - M51.372) 10/06/2024 Other chronic pain (ICD-10 - G89.29) 10/07/2024 Disc displacement, lumbar (ICD-10 - M51.26) 11/01/2024 Other spondylosis with radiculopathy, lumbosacral region (ICD-10 - M47.27) 12/06/2024 Degeneration of intervertebral disc of lumbar region with discogenic back pain (ICD-10 - M51.360) 12/06/2024 Arthrodesis status (ICD-10 - Z98.1) 11/01/2024 Degeneration of intervertebral disc of lumbar region with discogenic back pain (ICD-10 - M51.360) 10/07/2024 Lumbago with sciatica, right side (ICD-10 - M54.41) 10/06/2024 Lumbago with sciatica, right side (ICD-10 - M54.41) 10/06/2024 Lumbago with sciatica, left side (ICD-10 - M54.42) 10/07/2024 Lumbago with sciatica, left side (ICD-10 - M54.42) 11/01/2024 Arthrodesis status (ICD-10 - Z98.1) 12/06/2024 Postop check (ICD-10 - Z09) 11/01/2024 Postop check (ICD-10 - Z09) 10/07/2024 Other spondylosis with radiculopathy, lumbosacral region (ICD-10 - M47.27) 10/07/2024 Degeneration of intervertebral disc of lumbar region with discogenic back pain (ICD-10 - M51.360) Plan Of Treatment Pending Test Test Name Order Date Prothrombin Time 55663 10/07/2024 ABORh 47286, 18113 10/07/2024 Antibody Screen 52346 10/07/2024 Basic Metabolic Panel (BMP) 80234 2024 CBC w\ Auto Diff 00239 10/07/2024 Partial Thromboplastin Time 50576 2024 Chest PA/Lat-84003 10/11/2024 XR Outside CD 08/23/2024 BB ABORH-76870,05404 10/11/2024 zzzFluoro >1h4 10/18/2024 zzzCT Outside CD 01/07/2024 zzzMRI Outside CD 09/09/2024 Schedule Confirmation 10/11/2024 Schedule Confirmation 10/11/2024 CT L-Spine w/o Contrast Bongor Protocol-7 213010/11/2024 IH Lumbosacral Spine AP/Lat - 76279 09/30 IH Lumbosacral Spine AP/Lat - 42777 09/30 Future Test Test Name Order Date Chest PA/Lat-86071 10/07/2024 Electrocardiogram 12 Lead Tracing-51767 10/07/2024 CT L-Spine w/o Contrast Bongor Protocol-7 213010/07/2024 Lumbosacral Spine AP/Lat-92528 Next Appt Details Provider Name:Jolene Stephens , 03/07/2025 01:30:00 PM, [address], [place], [address], Insurance Providers Payer Name Payer Address Payer Phone Subscriber Number Group Number Insured Name Patient Relationship to Insured Coverage Start Date Coverage End Date [employer] C[employer] [address] [place] [address] [phone] [id number] CINDY QIU Self - patient is the insured [employer] [address] [place] [address] [id number] CINDY QIU Self - patient is the insured Medical (General) History Medical History History ICD Code Problem:Chronic back pain (disorder) , S tatus :: Active Problem:Hyperlipidemia (disorder) , Stat us :: Active Problem:Hypertensive disorde r, systemic arterial (disorder) , Status :: Active Problem:Obesity (disorder) , Status :: A ctive Problem:Obstructive sleep apnea syndrome (disorder) , Status :: Active Varicella without complication B01.9 Pneumonia J18.9 Arthritis HTN Asthma Surgical History Surgery Date(Month/Year) Thumb
--- OUTSIDE RECORDS SUMMARY | 2024-12-25 08:19 | XMS_ITS | Clinical Summary ---
Author Organization [facility] Address [address] [place] [address] Phone Care Team Providers Care Internal Grinder Name Role Phone Unavailable Primary Care Provider Unavailabl e Social History Tobacco Use Types Packs/Day Years Used Date Smoking Tobacco: Never Assessed Sex and Gender Information Value Date Recorded Sex Assigned at Not on file Legal Sex Male 9:51 AM CDT Gender Identity Not on file Sexual Orientation Not on file Plan of Treatment Health Maintenance Due Date Last Done Comments HPV VACCINES (1 - Male 3-dose series) 11/23/1999 DTAP/TDAP/TD VACCINES (1 - Tdap) 11/23/2003 HEPATITIS B VACCINES (1 of 3 - 19+ 3-dose series) 10/31 INFLUENZA VACCINE (#1) 2024 Insurance [facility] [employer]
[2024-12-25 08:28] VITALS: BP 127/100; PULSE 83; RESP 16; TEMP 37.2; O2SAT 96; BMI 34.0
--- NOTE | 2024-12-25 08:32 | USR_ITS ---
PROCEDURE INFORMATION: Exam: US Abdomen, Limited; Right Upper Quadrant Exam date and time: 12/25/2024 8:46 AM Age: 39 years old Clinical indication: Abdominal pain; Generalized; Additional info: Ruq pain TECHNIQUE: Imaging protocol: Real time ultrasound of the abdomen with image documentation. Limited exam focused on the right upper quadrant. COMPARISON: US abdomen limited 67891 11/26/2022 9:35 AM FINDINGS: Liver: There is fatty change of the liver. Adjacent to the gallbladder there is a focal area of hypoechogenicity within the liver which may represent focal fatty sparing. There is hepatopetal flow within the main portal vein. Gallbladder: Normal in appearance. No stones are identified. Biliary ducts: Normal. No stones. No dilation. Pancreas: Visualized pancreas is unremarkable. Right kidney: Right kidney measures 10.3 x 7.2 x 5.7 cm. No hydronephrosis. Renal echotexture is within normal limits. Aorta: Aorta and IVC appear within normal limits. US/US gall bladder 13221 IMPRESSION: Fatty change of the liver. Focal fatty sparing adjacent to the gallbladder.
--- NOTE | 2024-12-25 08:33 | W.ED.ABDPA2 ---
HPI - Abdominal Pain General: Chief Complaint: Abdominal Pain Stated Complaint: n/v/d/f, abd pain, ODOM Time Seen by Provider: 12/25/24 08:13 Source: patient Mode of arrival: ambulatory Limitations: no limitations History of Present Illness: 39-year-old male states that he recently finished antibiotics for strep states that since then over the last week he has been having some epigastric pain it has been intermittent. States has been cramping pain that has since resolved but he is also had some nausea and vomiting. He denies any fevers denies any diarrhea denies any worse improved factors. Associated Symptoms: Reports nausea and vomiting; Denies chills, diarrhea, dysuria and fever(s) Related Data Home Medications ?Medication ?Instructions ?Recorded ?Confirmed albuterol sulfate 90 mcg/actuation 2 puff inhalation Q6H PRN 06/12/21 05/23/24 aerosol inhaler Shortness Of Breath Or Wheezing hydrochlorothiazide 25 mg tablet 25 mg PO DAILY 06/12/21 05/23/24 metoprolol succinate 100 mg 200 mg PO DAILY 06/12/21 05/23/24 tablet,extended release 24 hr temazepam 15 mg capsule 15 mg PO DAILY 06/12/21 05/23/24 duloxetine 60 mg capsule,delayed 60 mg PO DAILY 05/23/24 05/23/24 release fenofibrate nanocrystallized 145 145 mg PO DAILY 05/23/24 05/23/24 mg tablet fluticasone 250 mcg-salmeterol 50 1 inh inhalation BID 05/23/24 05/23/24 mcg/dose blistr powdr for inhalation (Wixela Inhub) sumatriptan succinate 50 mg tablet 50 mg PO Q2H PRN Migraine Headache 05/23/24 05/23/24 Previous Rx's ?Medication ?Instructions ?Recorded albuterol sulfate 90 mcg/actuation 2 inh inhalation Q4H PRN shortness 05/23/24 aerosol inhaler of breath or wheezing #6.7 grams azithromycin 250 mg tablet See Rx Instructions PO .COMPLEX #6 05/23/24 (Zithromax Z-Gallito) tabs metoclopramide HCl 10 mg tablet 10 mg PO Q6H PRN nausea and 12/25/24 (Reglan) vomiting #20 tabs Allergies Allergy/AdvReac Type Severity Reaction Status Date / Time No Known Allergies Allergy Verified 05/23/24 13:29 Review of Systems Const: Denies: fever(s), chills, body aches or change in appetite ENMT: Denies: throat pain or dental pain Card: Denies: chest pain Resp: Denies: dyspnea GI: Reports: abdominal pain, nausea and vomiting; Denies: diarrhea : Denies: dysuria Musc: Denies: neck pain or back pain Skin/Breast: Denies: rash Neuro: Denies: headache(s) Course Vital Signs: Vital signs: Vital Signs Temperature 98.9 F 12/25/24 08:28 Pulse Rate 83 12/25/24 08:28 Respiratory Rate 16 12/25/24 08:28 Blood Pressure 127/100 12/25/24 08:28 Pulse Oximetry 96 12/25/24 08:28 Oxygen Delivery Me thod Room Air 12/25/24 08:28 MDM - Abdominal Pain Medical Decision Making Patient presents with intermittent abdominal pain with vomiting he has been well-appearing here initial repeat abdominal exam here is benign ultrasound gallbladder showed no cholecystitis blood works normal he stable for discharge follow-up PCP return if worsening. Medical Records I reviewed the patient's medical records. Lab Data I reviewed the patient's lab results. 12/25/24 08:40 12/25/24 08:40 Labs/Radiology: Laboratory Results WBC 13.47 10^3/uL (3.29-11.43) H 12/25/24 08:40 RBC 4.90 10^6/uL (3.85-5.65) 12/25/24 08:40 Hgb 13.90 g/dL (11.27-16.99) 12/25/24 08:40 Hct 40.6 % (37-53) 12/25/24 08:40 MCV 82.9 fl (82-101) 12/25/24 08:40 MCH 28.4 pg (27-33) 12/25/24 08:40 MCHC 34.2 g/dL (30-55) 12/25/24 08:40 RDW 12.1 % (12.1-15.1) 12/25/24 08:40 Plt Count 242 10^3/cmm (157-399) 12/25/24 08:40 MPV 10.2 fL (7.4-10.4) 12/25/24 08:40 Neut % (Auto) 57.1 % 12/25/24 08:40 Lymph % (Auto) 30.9 % 12/25/24 08:40 Toombs % (Auto) 11.1 % 12/25/24 08:40 Eos % (Auto) 0.6 % 12/25/24 08:40 Baso % (Auto) 0.2 % 12/25/24 08:40 Neut # (Auto) 7.68 10^3/uL (1.8-7.7) 12/25/24 08:40 Lymph # (Auto) 4.2 10^3/uL (0.8-4.8) 12/25/24 08:40 Toombs # (Auto) 1.5 10^3/uL (0.2-0.9) H 12/25/24 08:40 Eos # (Auto) 0.1 10^3/uL (0.0-0.8) 12/25/24 08:40 Baso # (Auto) 0.0 10^3/uL (0.0-0.1) 12/25/24 08:40 Nucleated RBC % (auto) 0 % 12/25/24 08:40 Nucleated RBCs # 0.0 /100WBC 12/25/24 08:40 Sodium 136 mmol/L (136-145) 12/25/24 08:40 Potassium 3.5 mmol/L (3.5-5.1) 12/25/24 08:40 Chloride 98 mmol/L (98-107) 12/25/24 08:40 Carbon Dioxide 23 mmol/L (22-29) 12/25/24 08:40 Anion Gap 18.5 (5-19) 12/25/24 08:40 BUN 13 mg/dL (6-20) 12/25/24 08:40 Creatinine 0.9 mg/dL (0.7-1.2) 12/25/24 08:40 GFR Calculation 93.5 mL/min (90-130) 12/25/24 08:40 Glucose 100 mg/dL (65-115) 12/25/24 08:40 Calculated Osmolality 282 mOsm/kg (285-295) L 12/25/24 08:40 Calcium 9.6 mg/dL (8.5-10.5) 12/25/24 08:40 Total Bilirubin 0.6 mg/dL (0.15-1.2) 12/25/24 08:40 AST 17 U/L (0-40) 12/25/24 08:40 ALT 34 U/L (0-41) 12/25/24 08:40 Alkaline Phosphatase 80 U/L (40-130) 12/25/24 08:40 Total Protein 8.1 g/dL (6.6-8.7) 12/25/24 08:40 Albumin 4.9 g/dL (3.5-5.2) 12/25/24 08:40 Globulin 3.2 g/dL (1.3-4.6) 12/25/24 08:40 Lipase 14 U/L (13-60) 12/25/24 08:40 All radiology interpretation(s) finalized by discharge Discharge Plan Discharge Patient Disposition: Home Clinical Impression: Abdominal pain, Vomiting Condition: Stable Prescriptions: New metoclopramide HCl [Reglan] 10 mg tablet 10 mg PO Q6H PRN (Reason: nausea and vomiting) Qty: 20 0RF No Action albuterol sulfate 90 mcg/actuation HFA aerosol inhaler 2 puff inhalation Q6H PRN (Reason: Shortness Of Breath Or Wheezing) hydrochlorothiazide 25 mg tablet 25 mg PO DAILY metoprolol succinate 100 mg tablet extended release 24 hr 200 mg PO DAILY temazepam 15 mg capsule 15 mg PO DAILY fluticasone propion-salmeterol [Wixela Inhub] 250-50 mcg/dose Blister With Device 1 inh INHALATION BID sumatriptan succinate 50 mg Tablet 50 mg PO Q2H PRN (Reason: Migraine Headache) Rx Instructions: do not exceed 4 doses per 24 hrs duloxetine 60 mg Capsule,Delayed Release(Dr/Ec) 60 mg PO DAILY fenofibrate nanocrystallized 145 mg Tablet 145 mg PO DAILY azithromycin [Zithromax Z-Gallito] 250 mg tablet See Rx Instructions .ROUTE .COMPLEX Qty: 6 0RF Rx Instructions: For 250 mg dose pack: take 500 mg today (day 1), then 250 mg for 4 days (days 2-5) albuterol sulfate 90 mcg/actuation HFA aerosol inhaler 2 inh inhalation Q4H PRN (Reason: shortness of breath or wheezing) Qty: 6.7 0RF Rx Instructions: Please provide patient with a spacer Discharge Orders: Discharge ED (Routine); Ordered 12/25/24 Ordered By: Melanie Wood Referrals: Pattie Sunshine FNP [Primary Care Provider, Nurse Practitioner] - 4-7 days Discharge Diet: Advance as tolerated Discharge Activity: Resume usual activity Patient Instructions: Abdominal Pain (ED) Print Language: Nepali Coding Level of Care Code ED 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
[2024-12-25 08:45] LABS: Hematocrit 40.6 % (37-53); Hemoglobin 13.90 g/dL (11.27-16.99); Mean Corpuscular HGB Conc 34.2 g/dL (30-55); Mean Corpuscular Hemoglobin 28.4 pg (27-33); Mean Corpuscular Volume 82.9 fl (82-101); Nucleated Red Blood Cells % 0 %; Platelet Count 242 10^3/cmm (157-399); Red Blood Count 4.90 10^6/uL (3.85-5.65); White Blood Count 13.47 10^3/uL (3.29-11.43)
[2024-12-25 09:03] LABS: Alanine Aminotransferase 34 U/L (0-41); Albumin Level 4.9 g/dL (3.5-5.2); Alkaline Phosphatase 80 U/L (40-130); Anion Gap 18.5 (5-19); Aspartate Amino Transferase 17 U/L (0-40); Blood Urea Nitrogen 13 mg/dL (6-20); Calcium 9.6 mg/dL (8.5-10.5); Carbon Dioxide 23 mmol/L (22-29); Chloride 98 mmol/L (98-107); Creatinine Clr Calc Pharmacy 129.8617; Globulin 3.2 g/dL (1.3-4.6); Glucose 100 mg/dL (65-115); Lipase 14 U/L (13-60); Osmolality Calculated 282 mOsm/kg (285-295); Potassium 3.5 mmol/L (3.5-5.1); Sodium 136 mmol/L (136-145); Total Protein 8.1 g/dL (6.6-8.7)
[2024-12-25] MEDS: ondansetron 2 mg/ML SDV 2 mL 4 MG IVP (09:32)
[2024-12-25 09:50] VITALS: BP 127/85; PULSE 73; O2SAT 95
== END 2024-12-25 09:50 | disposition home or self-care (01) ==
PROVIDERS: Emergency Provider Emergency Medicine; PCP Nurse Practitioner
DX: R10.9 Unspecified abdominal pain (principal); R11.10 Vomiting, unspecified
CPT/HCPCS: 76705; 80053; 83690; 85025; 96374; 99284; J2405; J7030

== ENCOUNTER → 2025-01-02 08:14 | Outpatient (BNVA) | payer OTHER, SELFPAY | PROVIDERS: PCP Nurse Practitioner; Referring Provider Nurse Practitioner; Visit Provider Specialist | DX: G43.711 Chronic migraine without aura, intractable, with status migrainosus (principal) | CPT/HCPCS: 99204 ==